=== PATIENT | male | born 1995 | race Caucasian/White ===

== ENCOUNTER 2017-10-12 02:00 | Emergency (ER) | payer OTHER ==
[~2017-10-12] VITALS: Ht 172.7 cm; Wt 105.0 kg
[2017-10-12 02:00] VITALS: BP 136/79; PULSE 78; RESP 16; TEMP 98; O2SAT 98
[~2017-10-12 02:00] MED LIST: BACT800T5 PO; CEPH500C3 PO; IBUP800T23 PO; SERO200T PO
[2017-10-12] MEDS ORDERED: SERO200T PO (02:39)
[2017-10-12 03:20] LABS: AUTOMATED NEUTROPHIL # 7.9 TH/MM3 (1.8-7.7); BASOPHIL % 0.1 % (0.0-2.0); EOSINOPHIL # 0.2 TH/MM3 (0-0.4); HEMOGLOBIN 12.9 GM/DL (13.0-17.0); LYMPH % 25.8 % (9.0-44.0); LYMPHOCYTE # 3.3 TH/MM3 (1.0-4.8); MEAN CELL VOLUME 64.3 FL (80.0-100.0); MEAN CORPUSCULAR HEMOGLOBIN 20.7 PG (27.0-34.0); MEAN CORPUSCULAR HGB CONC 32.2 % (32.0-36.0); MONO % 9.6 % (0.0-8.0); MONOCYTE # 1.2 TH/MM3 (0-0.9); NEUT % 62.5 % (16.0-70.0); PLATELET COUNT 267 TH/MM3 (150-450); RED BLOOD COUNT 6.22 MIL/MM3 (4.50-5.90); RED CELL DISTRIBUTION WIDTH 15.4 % (11.6-17.2); WHITE BLOOD COUNT 12.6 TH/MM3 (4.0-11.0)
[2017-10-12] MEDS ORDERED: LORazepam 2 MG/ML VIAL IV PUSH ONE (03:45)
--- NOTE | 2017-10-12 03:49 | PD ---
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 Patient here repetitively is cursing and abusive with language and behavior requiring vial restraints. Patient does not provide any useful information. According to law enforcement Neyda carlson family had apparently notified police due to their concerns and share patient does have history of schizophrenia bipolar disorder has been smoking cannabis has not been taking his medications and reportedly made several suicidal statements. Here the patient does not report any suicidal ideation but is aggressive and did require restraints PFSH Past Medical History Anemia: Yes Bipolar Disorder: Yes Anxiety: Yes Depression: Yes Cancer: No Cardiovascular Problems: No Diabetes: No Diminished Hearing: No Endocrine: No Gastrointestinal Disorders: Yes (HX OF GI BLEED 2013) Genitourinary: No Immune Disorder: No Implanted Vascular Access Dvce: No Musculoskeletal: No Neurologic: No Psychiatric: Yes Reproductive: No Respiratory: No Immunizations Current: Yes Schizophrenia: Yes Ulcer: Yes Past Surgical History Pacemaker: No Other Surgery: No Social History Alcohol Use: Yes (DRINKS ON OCCASION) Tobacco Use: Yes (1/2 -1 PPD) Substance Use: Yes Allergies-Medications (Allergen,Severity, Reaction): Coded Allergies: cat dander (Unverified Allergy, Severe, Sneezing, 10/12/17) Reported Meds & Prescriptions Reported Meds & Active Scripts Active Reported Seroquel (Quetiapine Fumarate) 200 Mg Tab 200 Mg PO BID Review of Systems ROS Limitations: Uncooperative, Refused, Poor Historian Except as stated in HPI: all other systems reviewed are Neg Physical Exam Narrative GENERAL: Well-developed well-nourished male in no acute distress no respiratory distress GCS 15 intermittently aggressive and using insulting and rude verbiage with medical staff SKIN: Warm and dry. HEAD: Normocephalic. EYES: No scleral icterus. No injection or drainage. NECK: Supple, trachea midline. No JVD or lymphadenopathy. CARDIOVASCULAR: Regular rate and rhythm without murmurs, gallops, or rubs. RESPIRATORY: Breath sounds equal bilaterally. No accessory muscle use. GASTROINTESTINAL: Abdomen soft, non-tender, nondistended. MUSCULOSKELETAL: No cyanosis, or edema. BACK: Nontender without obvious deformity. No CVA tenderness. Data Data Last Documented VS Vital Signs Date Time Temp Pulse Resp B/P (MAP) Pulse Ox O2 Delivery O2 Flow Rate FiO2 10/12/17 02:00 98.0 78 16 136/79 (98) 98 Orders Orders Complete Blood Count With Diff (10/12/17 02:41) Basic Metabolic Panel (Bmp) (10/12/17 02:41) Drug Screen, Random Urine (10/12/17 02:41) Alcohol (Ethanol) (10/12/17 02:41) Tylenol (Acetaminophen) (10/12/17 02:41) Salicylates (Aspirin) (10/12/17 02:41) Psych Screen (10/12/17 02:41) Cath For Specimen (10/12/17 02:41) Lorazepam Inj (Ativan Inj) (10/12/17 03:45) Restraints Violent (10/12/17 03:39) Labs Laboratory Tests Test 10/12/17 02:48 10/12/17 03:00 White Blood Count 12.6 TH/MM3 Red Blood Count 6.22 MIL/MM3 Hemoglobin 12.9 GM/DL Hematocrit 40.0 % Mean Corpuscular Volume 64.3 FL Mean Corpuscular Hemoglobin 20.7 PG Mean Corpuscular Hemoglobin Concent 32.2 % Red Cell Distribution Width 15.4 % Platelet Count 267 TH/MM3 Mean Platelet Volume 8.0 FL Neutrophils (%) (Auto) 62.5 % Lymphocytes (%) (Auto) 25.8 % Monocytes (%) (Auto) 9.6 % Eosinophils (%) (Auto) 2.0 % Basophils (%) (Auto) 0.1 % Neutrophils # (Auto) 7.9 TH/MM3 Lymphocytes # (Auto) 3.3 TH/MM3 Monocytes # (Auto) 1.2 TH/MM3 Eosinophils # (Auto) 0.2 TH/MM3 Basophils # (Auto) 0.0 TH/MM3 CBC Comment DIFF FINAL Differential Comment Blood Urea Nitrogen 8 MG/DL Creatinine 1.18 MG/DL Random Glucose 89 MG/DL Calcium Level 8.9 MG/DL Sodium Level 138 MEQ/L Potassium Level 3.4 MEQ/L Chloride Level 104 MEQ/L Carbon Dioxide Level 24.4 MEQ/L Anion Gap 10 MEQ/L Estimat Glomerular Filtration Rate 77 ML/MIN Salicylates Level 2.0 MG/DL Acetaminophen Level LESS THAN 2.0 MCG/ML Ethyl Alcohol Level LESS THAN 3 MG/DL Urine Opiates Screen NEG Urine Barbiturates Screen NEG Urine Amphetamines Screen NEG Urine Benzodiazepines Screen NEG Urine Cocaine Screen NEG Urine Cannabinoids Screen POS MDM Medical Decision Making Medical Screen Exam Complete: Yes Emergency Medical Condition: Yes Medical Record Reviewed: Yes Interpretation(s) CBC & BMP Diagram 10/12/17 02:48 Calcium Level 8.9 Vital Signs Date Time Temp Pulse Resp B/P (MAP) Pulse Ox O2 Delivery O2 Flow Rate FiO2 10/12/17 02:00 98.0 78 16 136/79 (98) 98 Differential Diagnosis Depression suicidal ideation medication noncompliance exacerbation schizoaffective disorder mood disorder substance ingestion Narrative Course 22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 recommendation of family identifying patient to be noncompliant with his medications for schizophrenia and bipolar disorder as well as substance use with marijuana and suicidal ideation; specimens collected and sent for resulting Patient becoming agitated and requiring chemical and physical while in restraints Lab values resulted and patient is medically cleared for psych screening and psych service admission Diagnosis Primary Impression: Mood disorder Additional Impressions: Bipolar disorder Suicidal ideation Noncompliance with medication regimen Marijuana use Myiram Watts MD Oct 12, 2017 03:49
[2017-10-12 03:56] LABS: BICARBONATE 24.4 MEQ/L (21.0-32.0); BLOOD UREA NITROGEN 8 MG/DL (7-18); CALCIUM 8.9 MG/DL (8.5-10.1); CHLORIDE 104 MEQ/L (98-107); CREATININE 1.18 MG/DL (0.60-1.30); GLOMERULAR FILTRATION RATE 77 ML/MIN (>89); GLUCOSE,RANDOM 89 MG/DL (74-106); SODIUM (NA) 138 MEQ/L (136-145)
[2017-10-12 03:57] LABS: ACETAMINOPHEN LESS THAN 2.0 MCG/ML (10.0-30.0)
[2017-10-12] MEDS ORDERED: FLUO-1 PO (04:40)
[2017-10-12] MEDS ORDERED: ONDANSETRON HCL 4 MG/2 ML VIAL IV PUSH ONE (06:45)
[2017-10-12 07:20] VITALS: BP 102/57; PULSE 84; RESP 16; O2SAT 98
[2017-10-12] MEDS ORDERED: ZIPRASIDONE MESYLATE 20 MG VIAL IM ONE (09:15)
[2017-10-12 13:04] VITALS: BP 129/89; PULSE 67; RESP 16; TEMP 97.6; O2SAT 98
[2017-10-12] MEDS ORDERED: HALOPERIDOL LACTATE 5 MG/ML AMP IM ONE (17:00)
[2017-10-12] MEDS ORDERED: diphenhydrAMINE HCL 50 MG/ML VIAL IM ONE (17:00)
[2017-10-12] MEDS ORDERED: LORazepam 2 MG/ML VIAL IM ONE (17:00)
--- NOTE | 2017-10-12 17:10 | PD ---
Data Data Last Documented VS Vital Signs Date Time Temp Pulse Resp B/P (MAP) Pulse Ox O2 Delivery O2 Flow Rate FiO2 10/12/17 13:04 97.6 67 16 129/89 (102) 98 Room Air Orders Orders Complete Blood Count With Diff (10/12/17 02:41) Basic Metabolic Panel (Bmp) (10/12/17 02:41) Drug Screen, Random Urine (10/12/17 02:41) Alcohol (Ethanol) (10/12/17 02:41) Tylenol (Acetaminophen) (10/12/17 02:41) Salicylates (Aspirin) (10/12/17 02:41) Psych Screen (10/12/17 02:41) Cath For Specimen (10/12/17 02:41) Lorazepam Inj (Ativan Inj) (10/12/17 03:45) Restraints Violent (10/12/17 03:39) Ondansetron Inj (Zofran Inj) (10/12/17 06:45) Ziprasidone Inj (Geodon Inj) (10/12/17 09:15) Diet Regular Basic (10/12/17 Dinner) ^ Other Nursing Orders (10/12/17 16:11) Haloperidol Inj (Haldol Inj) (10/12/17 17:00) Lorazepam Inj (Ativan Inj) (10/12/17 17:00) Restraints Violent (10/12/17 16:52) Diphenhydramine Inj (Benadryl Inj) (10/12/17 17:00) Labs Laboratory Tests Test 10/12/17 02:48 10/12/17 03:00 White Blood Count 12.6 TH/MM3 Red Blood Count 6.22 MIL/MM3 Hemoglobin 12.9 GM/DL Hematocrit 40.0 % Mean Corpuscular Volume 64.3 FL Mean Corpuscular Hemoglobin 20.7 PG Mean Corpuscular Hemoglobin Concent 32.2 % Red Cell Distribution Width 15.4 % Platelet Count 267 TH/MM3 Mean Platelet Volume 8.0 FL Neutrophils (%) (Auto) 62.5 % Lymphocytes (%) (Auto) 25.8 % Monocytes (%) (Auto) 9.6 % Eosinophils (%) (Auto) 2.0 % Basophils (%) (Auto) 0.1 % Neutrophils # (Auto) 7.9 TH/MM3 Lymphocytes # (Auto) 3.3 TH/MM3 Monocytes # (Auto) 1.2 TH/MM3 Eosinophils # (Auto) 0.2 TH/MM3 Basophils # (Auto) 0.0 TH/MM3 CBC Comment DIFF FINAL Differential Comment Blood Urea Nitrogen 8 MG/DL Creatinine 1.18 MG/DL Random Glucose 89 MG/DL Calcium Level 8.9 MG/DL Sodium Level 138 MEQ/L Potassium Level 3.4 MEQ/L Chloride Level 104 MEQ/L Carbon Dioxide Level 24.4 MEQ/L Anion Gap 10 MEQ/L Estimat Glomerular Filtration Rate 77 ML/MIN Salicylates Level 2.0 MG/DL Acetaminophen Level LESS THAN 2.0 MCG/ML Ethyl Alcohol Level LESS THAN 3 MG/DL Urine Opiates Screen NEG Urine Barbiturates Screen NEG Urine Amphetamines Screen NEG Urine Benzodiazepines Screen NEG Urine Cocaine Screen NEG Urine Cannabinoids Screen POS MDM Supervised Visit with CLEMENTINA: No Narrative Course Patient was a code [facility] from [facility]. Apparently he did not want to stay any longer and kicked the locked door of [facility] open and then proceeded to do to sliding glass doors that lead to the parking lot and kicked those 2 doors open. He was seen stripping from his paper scrubs in the parking lot and an security confronted him and he surrendered putting his hands on his head. He did not have to be forcibly taken down. He was brought back to the [facility] and placed in 4-point locking restraints under my order. When I asked the patient what happened he stated "look around G". He states "the government is allowing this to happen to him". The patient understands is under Faye act but cannot tell me any reason why he came to be under Faye act. He is incredibly tangential and avoids any subject of pertinence. The patient either has very poor insight into his situation or is unwilling to discuss it with me. Either way he is not in capacity to make his own decisions. He will be sedated. Will be continued to be monitored on her nursing care. He's been previously medically cleared for psychiatric evaluation and disposition. On my examination the patient has no bumps bruises contusions on his person. He is moving all 4 extremities. He ambulated back into the emergency department under his own power. No indication for any further medical workup at this time. Diagnosis Primary Impression: Mood disorder Additional Impressions: Suicidal ideation Bipolar disorder Marijuana use Noncompliance with medication regimen Levi Preciado MD Oct 12, 2017 17:10
[2017-10-12 17:52] VITALS: BP 139/73; PULSE 83; RESP 20; TEMP 99.3; O2SAT 96
[2017-10-12 22:28] VITALS: BP 121/70; PULSE 73; RESP 19; TEMP 97.6; O2SAT 99
[2017-10-13 02:38] VITALS: BP 135/78; PULSE 69; RESP 18; TEMP 98.2; O2SAT 98
[2017-10-13] MEDS ORDERED: HALOPERIDOL LACTATE 5 MG/ML AMP IM ONE ×2 (04:30→09:15)
[2017-10-13] MEDS ORDERED: LORazepam 2 MG/ML VIAL IM ONE ×2 (04:30→09:15)
[2017-10-13 07:13] VITALS: BP 150/94; PULSE 94; RESP 18; TEMP 97.8; O2SAT 96
--- NOTE | 2017-10-13 08:55 | PD ---
Physical Exam Time Seen by Provider: 08:40 Data Data Last Documented VS Vital Signs Date Time Temp Pulse Resp B/P (MAP) Pulse Ox O2 Delivery O2 Flow Rate FiO2 10/13/17 07:13 97.8 94 18 150/94 (112) 96 Room Air Orders Orders Complete Blood Count With Diff (10/12/17 02:41) Basic Metabolic Panel (Bmp) (10/12/17 02:41) Drug Screen, Random Urine (10/12/17 02:41) Alcohol (Ethanol) (10/12/17 02:41) Tylenol (Acetaminophen) (10/12/17 02:41) Salicylates (Aspirin) (10/12/17 02:41) Psych Screen (10/12/17 02:41) Cath For Specimen (10/12/17 02:41) Lorazepam Inj (Ativan Inj) (10/12/17 03:45) Restraints Violent (10/12/17 03:39) Ondansetron Inj (Zofran Inj) (10/12/17 06:45) Ziprasidone Inj (Geodon Inj) (10/12/17 09:15) Diet Regular Basic (10/12/17 Dinner) ^ Other Nursing Orders (10/12/17 16:11) Haloperidol Inj (Haldol Inj) (10/12/17 17:00) Lorazepam Inj (Ativan Inj) (10/12/17 17:00) Restraints Violent (10/12/17 16:52) Diphenhydramine Inj (Benadryl Inj) (10/12/17 17:00) Haloperidol Inj (Haldol Inj) (10/13/17 04:30) Lorazepam Inj (Ativan Inj) (10/13/17 04:30) Diet Regular Basic (10/13/17 Breakfast) Foot, Complete ([id number]) (10/13/17 ) Lorazepam Inj (Ativan Inj) (10/13/17 09:15) Haloperidol Inj (Haldol Inj) (10/13/17 09:15) Nicotine 14 Mg Patch.24 Hr (Habitrol 14 (10/13/17 09:15) Labs Laboratory Tests Test 10/12/17 02:48 10/12/17 03:00 White Blood Count 12.6 TH/MM3 Red Blood Count 6.22 MIL/MM3 Hemoglobin 12.9 GM/DL Hematocrit 40.0 % Mean Corpuscular Volume 64.3 FL Mean Corpuscular Hemoglobin 20.7 PG Mean Corpuscular Hemoglobin Concent 32.2 % Red Cell Distribution Width 15.4 % Platelet Count 267 TH/MM3 Mean Platelet Volume 8.0 FL Neutrophils (%) (Auto) 62.5 % Lymphocytes (%) (Auto) 25.8 % Monocytes (%) (Auto) 9.6 % Eosinophils (%) (Auto) 2.0 % Basophils (%) (Auto) 0.1 % Neutrophils # (Auto) 7.9 TH/MM3 Lymphocytes # (Auto) 3.3 TH/MM3 Monocytes # (Auto) 1.2 TH/MM3 Eosinophils # (Auto) 0.2 TH/MM3 Basophils # (Auto) 0.0 TH/MM3 CBC Comment DIFF FINAL Differential Comment Blood Urea Nitrogen 8 MG/DL Creatinine 1.18 MG/DL Random Glucose 89 MG/DL Calcium Level 8.9 MG/DL Sodium Level 138 MEQ/L Potassium Level 3.4 MEQ/L Chloride Level 104 MEQ/L Carbon Dioxide Level 24.4 MEQ/L Anion Gap 10 MEQ/L Estimat Glomerular Filtration Rate 77 ML/MIN Salicylates Level 2.0 MG/DL Acetaminophen Level LESS THAN 2.0 MCG/ML Ethyl Alcohol Level LESS THAN 3 MG/DL Urine Opiates Screen NEG Urine Barbiturates Screen NEG Urine Amphetamines Screen NEG Urine Benzodiazepines Screen NEG Urine Cocaine Screen NEG Urine Cannabinoids Screen POS MDM Medical Record Reviewed: Yes Supervised Visit with CLEMENTINA: No Narrative Course Please see previous provider's notes. This patient was previously medically cleared. I was asked to examine this patient's right foot. According to staff yesterday he kicked a door open with his right foot. He is now complaining of right foot pain, primarily overlying the proximal third and fourth metatarsals. The pain is an aching pain which is reproduced when walking and alleviated when resting. On examination there is no obvious deformity, no bruising or soft tissue swelling. He has point tenderness to palpation to the dorsal surface of the right foot overlying the proximal third and fourth metatarsals. X-ray imaging will be obtained. X-ray imaging is normal. The patient appears to have a contusion to his right foot. Diagnosis Primary Impression: Mood disorder Additional Impressions: Suicidal ideation Bipolar disorder Marijuana use Noncompliance with medication regimen Contusion of right foot Alfredo Crawford Oct 13, 2017 08:55
[2017-10-13] MEDS ORDERED: NICOTINE 14 MG/24 HR PATCH T-DERMAL ONE (09:15)
--- NOTE | 2017-10-13 09:24 | RADRPT ---
EXAM DATE/TIME: 10/13/2017 09:10 [facility] COMPARISON: No previous studies available for comparison. INDICATIONS : Patient states right foot pain. MEDICAL HISTORY : None. SURGICAL HISTORY : None. ENCOUNTER: Initial ACUITY: 1 day PAIN SCORE: 5/10 LOCATION: Right Foot FINDINGS: Three view examination of the right foot demonstrates no soft tissue swelling, dislocation, or fractu re. The tarsal bones appear intact. The interphalangeal and metatarsophalangeal joints are intact. The calcaneus is intact. Bony mineralization is normal. CONCLUSION: Unremarkable examination of the right foot. Timi Armas MD on October 13, 2017 at 9:20 Board Certified Radiologist. This report was verified electronically.
== END 2017-10-13 10:08 ==
LOC: NEPC 02:00 → NEPJ 10-13 10:08
DX: F39 Unspecified mood [affective] disorder (principal); R45.851 Suicidal ideations; F31.9 Bipolar disorder, unspecified; F12.10 Cannabis abuse, uncomplicated; S90.31XA Contusion of right foot, initial encounter; Z91.14 Patient's other noncompliance with medication regimen; F20.9 Schizophrenia, unspecified; F17.210 Nicotine dependence, cigarettes, uncomplicated; X58.XXXA Exposure to other specified factors, initial encounter
CPT/HCPCS: 73630; 80048; 80307; 85025; 96372; 96374; 96375; 99285; J1200; J1630; J2060; J2405; J3486

== ENCOUNTER 2017-10-16 13:09 | Emergency (ER) | payer OTHER ==
[~2017-10-16] VITALS: Ht 177.8 cm; Wt 80.0 kg
[~2017-10-16 13:09] MED LIST changes: -BACT800T5 PO; -CEPH500C3 PO; +FLUO-1 PO; -IBUP800T23 PO
[2017-10-16 13:24] VITALS: BP 167/91; PULSE 107; RESP 18; TEMP 98; O2SAT 98
--- NOTE | 2017-10-16 14:24 | PD ---
HPI Chief Complaint: Psychiatric Symptoms Time Seen by Provider: 14:07 Travel History International Travel<30 days: No Contact w/Intl Traveler<30days: No Traveled to known affect area: No History of Present Illness HPI 22-year-old male brought in under the Faye act for threatening behavior to his family. Patient admits he has not been taking his medications appropriately. Patient appears uncooperative. He denies medical issues at this time. He is allergic to cat dander. PFSH Past Medical History Anemia: Yes Bipolar Disorder: Yes Anxiety: Yes Depression: Yes Cancer: No Cardiovascular Problems: No Diabetes: No Diminished Hearing: No Endocrine: No Gastrointestinal Disorders: Yes (HX OF GI BLEED 2013) Genitourinary: No Immune Disorder: No Implanted Vascular Access Dvce: No Musculoskeletal: No Neurologic: No Psychiatric: Yes Reproductive: No Respiratory: No Immunizations Current: Yes Schizophrenia: Yes Ulcer: Yes Past Surgical History Pacemaker: No Other Surgery: No Social History Alcohol Use: Yes (DRINKS ON OCCASION) Tobacco Use: Yes (2 -1 PPD) Substance Use: Yes Allergies-Medications (Allergen,Severity, Reaction): Coded Allergies: cat dander (Unverified Allergy, Severe, Sneezing, 10/12/17) Reported Meds & Prescriptions Reported Meds & Active Scripts Active Reported Prozac (Fluoxetine HCl) 10 Mg Cap 10 Mg PO DAILY Seroquel (Quetiapine Fumarate) 200 Mg Tab 200 Mg PO BID Review of Systems ROS Limitations: Uncooperative, Combative Except as stated in HPI: all other systems reviewed are Neg General / Constitutional: No: Fever Eyes: No: Visual changes HENT: No: Headaches Cardiovascular: No: Chest Pain or Discomfort Respiratory: No: Shortness of Breath Gastrointestinal: No: Abdominal Pain Genitourinary: No: Dysuria Musculoskeletal: No: Pain Skin: No Rash Neurologic: No: Weakness Psychiatric: No: Depression Endocrine: No: Polydipsia Hematologic/Lymphatic: No: Easy Bruising Physical Exam Exam Limitations: Uncooperative, Combative Narrative GENERAL: Patient appears in no obvious distress. SKIN: Warm and dry. Normal color. Normal turgor. No signs of trauma. HEAD: Atraumatic. Normocephalic. EYES: Pupils equal and round. No scleral icterus. No injection or drainage. ENT: No nasal bleeding or discharge. Mucous membranes pink and moist. NECK: Trachea midline. Supple and nontender. CARDIOVASCULAR: Regular rate and rhythm. RESPIRATORY: No accessory muscle use. Clear to auscultation. Breath sounds equal bilaterally. MUSCULOSKELETAL: Extremities without clubbing, cyanosis, or edema. No obvious deformities. NEUROLOGICAL: Awake and alert. No obvious cranial nerve deficits. Motor grossly within normal limits. Five out of 5 muscle strength in the arms and legs. Normal speech. PSYCHIATRIC: Appropriate mood and affect; insight and judgment normal. Data Data Last Documented VS Vital Signs Date Time Temp Pulse Resp B/P (MAP) Pulse Ox O2 Delivery O2 Flow Rate FiO2 10/16/17 13:24 98.0 107 18 167/91 (116) 98 Orders Orders Psych Screen (10/16/17 13:52) Complete Blood Count With Diff (10/16/17 14:08) Comprehensive Metabolic Panel (10/16/17 14:08) Drug Screen, Random Urine (10/16/17 14:08) MDM Medical Decision Making Medical Screen Exam Complete: Yes Emergency Medical Condition: Yes Medical Record Reviewed: Yes Differential Diagnosis Mood disorder. Aggressive behavior. Faye act. Psychiatric disorder. Narrative Course Patient appears medically stable at time of exam. Psychiatric labs ordered per protocol. Patient is medically clear for psychiatric evaluation. Condition: Stable Jorge Antonio Oct 16, 2017 14:23
[2017-10-16] MEDS ORDERED: LORazepam 2 MG/ML VIAL ONE (14:30)
[2017-10-16] MEDS ORDERED: ZIPRASIDONE MESYLATE 20 MG VIAL IM ONE ×2 (14:32→14:45)
[2017-10-16] MEDS ORDERED: diphenhydrAMINE HCL 50 MG/ML VIAL IM ONE (14:45)
[2017-10-16 15:05] LABS: AUTOMATED NEUTROPHIL # 7.9 TH/MM3 (1.8-7.7); BASOPHIL % 0.2 % (0.0-2.0); EOSINOPHIL # 0.2 TH/MM3 (0-0.4); EOSINOPHIL % 1.7 % (0.0-4.0); HEMATOCRIT 39.2 % (39.0-51.0); HEMOGLOBIN 12.6 GM/DL (13.0-17.0); LYMPHOCYTE # 2.3 TH/MM3 (1.0-4.8); MEAN CELL VOLUME 64.3 FL (80.0-100.0); MEAN CORPUSCULAR HEMOGLOBIN 20.6 PG (27.0-34.0); MEAN CORPUSCULAR HGB CONC 32.1 % (32.0-36.0); MONO % 9.3 % (0.0-8.0); MONOCYTE # 1.1 TH/MM3 (0-0.9); NEUT % 68.8 % (16.0-70.0); PLATELET COUNT 267 TH/MM3 (150-450); RED CELL DISTRIBUTION WIDTH 15.3 % (11.6-17.2); WHITE BLOOD COUNT 11.5 TH/MM3 (4.0-11.0)
[2017-10-16] MEDS ORDERED: LORazepam 2 MG/ML VIAL IM ONE ×2 (15:15→19:00)
[2017-10-16 15:22] LABS: ALBUMIN 4.9 GM/DL (3.4-5.0); ALT (GPT) 45 U/L (12-78); AST (GOT) 61 U/L (15-37); BICARBONATE 25.8 MEQ/L (21.0-32.0); BLOOD UREA NITROGEN 10 MG/DL (7-18); CALCIUM 9.1 MG/DL (8.5-10.1); CHLORIDE 104 MEQ/L (98-107); CREATININE 1.19 MG/DL (0.60-1.30); GLOMERULAR FILTRATION RATE 76 ML/MIN (>89); GLUCOSE,RANDOM 92 MG/DL (74-106); SODIUM (NA) 138 MEQ/L (136-145)
[2017-10-16 15:24] LABS: ALKALINE PHOSPHATASE 75 U/L (45-117); TOTAL PROTEIN 8.2 GM/DL (6.4-8.2)
[2017-10-16 18:53] VITALS: BP 150/92; PULSE 120; RESP 22; O2SAT 93
== END 2017-10-16 22:11 ==
LOC: NEPJ 13:09
DX: Z04.6 Encounter for general psychiatric examination, requested by authority (principal); D64.9 Anemia, unspecified; F31.9 Bipolar disorder, unspecified; F41.8 Other specified anxiety disorders; F20.9 Schizophrenia, unspecified; F17.210 Nicotine dependence, cigarettes, uncomplicated
CPT/HCPCS: 80053; 80307; 85025; 96372; 96374; 99285; J2060; J3486

== ENCOUNTER 2017-10-24 00:03 | Emergency (ER) | payer MEDICAID, OTHER ==
[2017-10-24 00:57] VITALS: BP 134/76; PULSE 85; RESP 17; TEMP 97.9; O2SAT 100
[2017-10-24 01:29] LABS: BILIRUBIN, URINE NEG (NEG); BLOOD, URINE NEG (NEG); GLUCOSE,URINE NEG (NEG); KETONE, URINE NEG (NEG); NITRITE,URINE NEG (NEG); URINE COLOR YELLOW (YELLW/STRAW); URINE LEUKOCYTE ESTERASE NEG (NEG)
--- NOTE | 2017-10-24 01:50 | PD ---
HPI Chief Complaint: Psychiatric Symptoms Time Seen by Provider: 01:24 Travel History International Travel<30 days: No Contact w/Intl Traveler<30days: No Traveled to known affect area: No History of Present Illness HPI 22-year-old white male presents to emergency department under Faye act by PD. According to the Faye act the patient had become violent and threatening at the home. The patient states that this is a big mistake. He had accidentally moved his furniture bench at home and it made a thumb alerted his grandmother to check on him. She blew this out of proportion. He denies making any threatening statements or actions. He states that he's been compliant with his medications. He thinks he is taking Depakote. States that he had a good workout at the gym earlier today and had a good evening and dinner. Patient denies any toxic ingestions. No medical complaints. Patient denies drugs and alcohol. PFSH Past Medical History Anemia: Yes Bipolar Disorder: Yes Anxiety: Yes Depression: Yes Cancer: No Cardiovascular Problems: No Diabetes: No Diminished Hearing: No Endocrine: No Gastrointestinal Disorders: Yes (HX OF GI BLEED 2013) Genitourinary: No Immune Disorder: No Implanted Vascular Access Dvce: No Musculoskeletal: No Neurologic: No Psychiatric: Yes Reproductive: No Respiratory: No Immunizations Current: Yes Schizophrenia: Yes Ulcer: Yes Past Surgical History Surgical History: No Previous Surgery Pacemaker: No Other Surgery: No Social History Alcohol Use: Yes (DRINKS ON OCCASION) Tobacco Use: Yes (09/30 - PPD) Allergies-Medications (Allergen,Severity, Reaction): Coded Allergies: cat dander (Unverified Allergy, Severe, Sneezing, 10/12/17) Reported Meds & Prescriptions Reported Meds & Active Scripts Active Reported Prozac (Fluoxetine HCl) 10 Mg Cap 10 Mg PO DAILY Seroquel (Quetiapine Fumarate) 200 Mg Tab 200 Mg PO BID Review of Systems General / Constitutional: No: Fever Eyes: No: Visual changes HENT: No: Headaches Cardiovascular: No: Chest Pain or Discomfort Respiratory: No: Shortness of Breath Gastrointestinal: No: Abdominal Pain Genitourinary: No: Dysuria Musculoskeletal: No: Pain Skin: No Rash Neurologic: No: Weakness Psychiatric: No: Anxiety, Depression, Suicidal Ideations, Disorder of Thought, Mood Disorder, Substance Abuse, Homicidal Ideation Endocrine: No: Polydipsia Hematologic/Lymphatic: No: Easy Bruising Physical Exam Narrative GENERAL: Well-nourished, well-developed patient. SKIN: Warm and dry. HEAD: Normocephalic and atraumatic. EYES: No scleral icterus. No injection or drainage. ENT: No nasal drainage noted. Mucous membranes pink. Airway patent. NECK: Supple, trachea midline. Moves head freely without obvious discomfort. CARDIOVASCULAR: Regular rate and rhythm without murmurs, gallops, or rubs. RESPIRATORY: Breath sounds equal bilaterally. No accessory muscle use. GASTROINTESTINAL: Abdomen soft, non-tender, nondistended. EXTREMITIES: No cyanosis or edema. BACK: Nontender without obvious deformity. No CVA tenderness. NEURO: Patient is alert and oriented. no sensorimotor deficits. Nonfocal. Normal speech. PSYCH: No delusions. No auditory or visual hallucinations. Data Data Last Documented VS Vital Signs Date Time Temp Pulse Resp B/P (MAP) Pulse Ox O2 Delivery O2 Flow Rate FiO2 10/24/17 00:57 97.9 85 17 134/76 (95) 100 Orders Orders Urinalysis - C+S If Indicated (10/24/17 00:52) Psych Screen (10/24/17 00:52) Drug Screen, Random Urine (10/24/17 00:52) Valproic Acid (Depakene) (10/24/17 01:43) Lorazepam (Ativan) (10/24/17 02:30) Labs Laboratory Tests Test 10/24/17 01:10 10/24/17 01:55 Urine Color YELLOW Urine Turbidity CLEAR Urine pH 7.0 Urine Specific [place] 1.007 Urine Protein NEG mg/dL Urine Glucose (UA) NEG mg/dL Urine Ketones NEG mg/dL Urine Occult Blood NEG Urine Nitrite NEG Urine Bilirubin NEG Urine Urobilinogen LESS THAN 2.0 MG/DL Urine Leukocyte Esterase NEG Urine RBC LESS THAN 1 /hpf Urine WBC LESS THAN 1 /hpf Microscopic Urinalysis Comment CULT NOT INDICATED Urine Opiates Screen NEG Urine Barbiturates Screen NEG Urine Amphetamines Screen NEG Urine Benzodiazepines Screen NEG Urine Cocaine Screen NEG Urine Cannabinoids Screen POS MDM Medical Decision Making Medical Screen Exam Complete: Yes Emergency Medical Condition: Yes Medical Record Reviewed: Yes Interpretation(s) Laboratory Tests Test 10/24/17 01:10 10/24/17 01:55 Urine Color YELLOW Urine Turbidity CLEAR Urine pH 7.0 Urine Specific [place] 1.007 Urine Protein NEG mg/dL Urine Glucose (UA) NEG mg/dL Urine Ketones NEG mg/dL Urine Occult Blood NEG Urine Nitrite NEG Urine Bilirubin NEG Urine Urobilinogen LESS THAN 2.0 MG/DL Urine Leukocyte Esterase NEG Urine RBC LESS THAN 1 /hpf Urine WBC LESS THAN 1 /hpf Microscopic Urinalysis Comment CULT NOT INDICATED Urine Opiates Screen NEG Urine Barbiturates Screen NEG Urine Amphetamines Screen NEG Urine Benzodiazepines Screen NEG Urine Cocaine Screen NEG Urine Cannabinoids Screen POS Differential Diagnosis MDM: High Differential diagnoses: Schizophrenia, schizoaffective disorder, bipolar, anxiety, depression, adjustment reaction, mood disorder NOS, ODD, depressive disorder NOS, dementia, dementia with agitation, psychosis NOS, substance induced mood disorder, DMDD, Asperger syndrome, infection,electrolyte abnormality, malingering. Narrative Course Mental health screening discussed with the patient. Psychiatric screen ordered. The patient has been medically clear. This is medical clearance for psychiatric admission Diagnosis Primary Impression: Medical clearance for psychiatric admission Condition: Stable Sarath Lagunas Oct 24, 2017 01:50
[2017-10-24] MEDS ORDERED: LORazepam 1 MG TAB PO ONE (02:30)
[2017-10-24 06:09] VITALS: BP 136/73; PULSE 78; RESP 18; O2SAT 99
[2017-10-24] MEDS ORDERED: IBUPROFEN 800 MG TAB PO ONE (09:45)
[2017-10-24] MEDS ORDERED: ARIP1064 IM (12:40)
[2017-10-24] MEDS ORDERED: ABIL15TA3 PO (12:40)
[2017-10-24] MEDS ORDERED: VALP250C PO (12:41)
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
[2017-10-24] MEDS ORDERED: diphenhydrAMINE HCL 50 MG/ML VIAL IM ONE (14:00)
[2017-10-24] MEDS ORDERED: LORazepam 2 MG/ML VIAL IM ONE (14:00)
[2017-10-24] MEDS ORDERED: ZIPRASIDONE MESYLATE 20 MG VIAL IM ONE (14:00)
== END 2017-10-24 15:50 | disposition home or self-care (01) ==
LOC: NEDAMB 00:03 → NEPJ 15:50
DX: F31.63 Bipolar disorder, current episode mixed, severe, without psychotic features (principal); F20.9 Schizophrenia, unspecified; D64.9 Anemia, unspecified; F41.9 Anxiety disorder, unspecified; F17.200 Nicotine dependence, unspecified, uncomplicated; Z79.899 Other long term (current) drug therapy
CPT/HCPCS: 80164; 80307; 81001; 96372; 99285; J1200; J2060; J3486

== ENCOUNTER 2017-10-26 01:20 | Emergency (ER) | payer SELFPAY ==
[~2017-10-26] VITALS: Ht 172.7 cm; Wt 105.0 kg
[~2017-10-26 01:20] MED LIST changes: +ABIL15TA3 PO; +ARIP1064 IM; -FLUO-1 PO; -SERO200T PO; +VALP250C PO
[2017-10-26 01:37] VITALS: BP 125/72; PULSE 85; RESP 18; TEMP 98.4; O2SAT 96
[2017-10-26] MEDS ORDERED: DEPA500T3 PO (01:41)
[2017-10-26] MEDS ORDERED: VIST50CA PO (01:41)
[2017-10-26] MEDS ORDERED: DICL75TA PO (01:45)
--- NOTE | 2017-10-26 01:45 | PD ---
HPI Chief Complaint: Pain: Acute or Chronic Time Seen by Provider: 01:40 Travel History International Travel<30 days: No Contact w/Intl Traveler<30days: No Traveled to known affect area: No History of Present Illness HPI 22-year-old white male known to myself from prior admissions presents to the ER from [facility] for evaluation of right hand pain after punching a door. Patient complains of pain in the right hand. No other injury. Pain is moderate. Worse with palpation. Some relief with elevation. PFSH Past Medical History Anemia: Yes Bipolar Disorder: Yes Anxiety: Yes Depression: Yes Cancer: No Cardiovascular Problems: No Diabetes: No Diminished Hearing: No Endocrine: No Gastrointestinal Disorders: Yes (HX OF GI BLEED 2013) Genitourinary: No Immune Disorder: No Implanted Vascular Access Dvce: No Musculoskeletal: No Neurologic: No Psychiatric: Yes Reproductive: No Respiratory: No Immunizations Current: Yes Schizophrenia: Yes Ulcer: Yes Past Surgical History Pacemaker: No Other Surgery: No Social History Alcohol Use: Yes (DRINKS ON OCCASION) Tobacco Use: Yes (2 - PPD) Allergies-Medications (Allergen,Severity, Reaction): Coded Allergies: cat dander (Unverified Allergy, Severe, Sneezing, 10/12/17) Reported Meds & Prescriptions Reported Meds & Active Scripts Active Diclofenac Sodium DR (Diclofenac Sodium) 75 Mg Tabdr 75 Mg PO BID Reported Vistaril (Hydroxyzine Pamoate) 50 Mg Cap 50 Mg PO BID Depakote ER (Divalproex Sodium) 500 Mg Omar 500 Mg PO HS Abilify (Aripiprazole) 15 Mg Tab 15 Mg PO HS Review of Systems General / Constitutional: No: Fever Eyes: No: Visual changes HENT: No: Headaches Cardiovascular: No: Chest Pain or Discomfort Respiratory: No: Shortness of Breath Gastrointestinal: No: Abdominal Pain Genitourinary: No: Dysuria Musculoskeletal: Positive: Arthralgias, Limited ROM, Edema, Pain, No: Myalgias , Weakness, Cramping Skin: No Rash Neurologic: No: Weakness Psychiatric: No: Depression Endocrine: No: Polydipsia Hematologic/Lymphatic: No: Easy Bruising Physical Exam Narrative GENERAL: This is a well-nourished, well-developed patient, in no apparent distress. SKIN: No rashes, ecchymoses or lesions. Warm and dry. HEAD: Atraumatic. Normocephalic. EYES: PERRL, EOMI, no discharge or injection. No scleral icterus. EARS: Clear NOSE: Nasal turbinates appear normal. THROAT: Mucosa pink and moist. Airway patent. NECK: Trachea midline. supple, moves head freely. LUNGS: Clear to auscultation. CV: Regular in rhythm. ABDOMEN: Soft nontender. EXT: No clubbing cyanosis. Examination the right hand reveals the skin to be intact. He has intact median/ulnar/radial nerves. Patient has tenderness and deformity over the fifth metacarpal. Data Data Last Documented VS Vital Signs Date Time Temp Pulse Resp B/P (MAP) Pulse Ox O2 Delivery O2 Flow Rate FiO2 10/26/17 01:37 98.4 85 18 125/72 (89) 96 Orders Orders Hand, Complete ([id number]) (10/26/17 01:41) Naproxen (Naprosyn) (10/26/17 02:00) Acetamin-Hydrocod 325-5 Mg ([place] 5-325 (10/26/17 02:00) Ice/Cold Pack (10/26/17 01:46) Splint Or Brace Apply/Monitor (10/26/17 01:46) Ed Discharge Order (10/26/17 02:17) MDM Medical Decision Making Medical Screen Exam Complete: Yes Emergency Medical Condition: Yes Medical Record Reviewed: Yes Interpretation(s) Right hand: Positive fifth metacarpal fracture Differential Diagnosis MDM: High Differential diagnoses: Fracture, sprain, strain, dislocation, contusion, neurovascular injury Narrative Course Patient has a fractured fifth metacarpal. He is placed in an ulnar gutter splint. He is given 1 hydrocodone 5 mg by mouth and Naprosyn 500 mg by mouth. Ice pack applied. This is right hand fracture fifth metacarpal Diagnosis Primary Impression: right fifth metacarpal fracture Patient Instructions: General Instructions Med/Other Pt SpecificInfo: Prescription(s) given Scripts Diclofenac Sodium DR (Diclofenac Sodium DR) 75 Mg Tabdr 75 MG PO BID, #30 TAB 0 Refills Prov: José Mccracken MD 10/26/17 Disposition: 65 DISC TO [facility] Condition: Stable Sarath Lagunas Oct 26, 2017 01:45
[2017-10-26] MEDS ORDERED: NAPROXEN 500 MG TAB PO ONE (02:00)
[2017-10-26] MEDS ORDERED: ACETAMINOPHEN/HYDROcodone 325 MG/5 MG TAB PO ONE (02:00)
--- NOTE | 2017-10-26 02:38 | RADRPT ---
EXAM DATE/TIME: 10/26/2017 02:03 [place] COMPARISON: No previous studies available for comparison. INDICATIONS : Pain and swelling to Right hand- No known injury MEDICAL HISTORY : None. SURGICAL HISTORY : None. ENCOUNTER: Initial ACUITY: 1 day PAIN SCORE: 7/10 LOCATION: Right Hand FINDINGS: There is fracture of the distal aspect of the fifth metacarpal with some volar angulation of the dist al fragment. CONCLUSION: Boxer fracture. Srinath Kaur MD on October 26, 2017 at 2:35 Board Certified Radiologist. This report was verified electronically.
== END 2017-10-26 02:51 ==
LOC: NEPD 01:20
DX: S62.396A Other fracture of fifth metacarpal bone, right hand, initial encounter for closed fracture (principal); W22.8XXA Striking against or struck by other objects, initial encounter
CPT/HCPCS: 29125; 73130

== ENCOUNTER 2017-10-28 23:48 | Inpatient (IN) | payer OTHER ==
[~2017-10-28] VITALS: Ht 167.6 cm; Wt 102.8 kg
[~2017-10-28 23:48] MED LIST changes: -ARIP1064 IM; +DEPA500T3 PO; +DICL75TA PO; -VALP250C PO; +VIST50CA PO
[2017-10-28 23:56] VITALS: BP 127/79; PULSE 83; RESP 16; TEMP 98.2; O2SAT 99
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
[2017-10-29 00:32] LABS: AUTOMATED NEUTROPHIL # 7.1 TH/MM3 (1.8-7.7); BASOPHIL # 0.2 TH/MM3 (0-0.2); BASOPHIL % 1.6 % (0.0-2.0); EOSINOPHIL # 0.2 TH/MM3 (0-0.4); EOSINOPHIL % 2.2 % (0.0-4.0); HEMATOCRIT 36.1 % (39.0-51.0); HEMOGLOBIN 11.9 GM/DL (13.0-17.0); LYMPH % 25.9 % (9.0-44.0); LYMPHOCYTE # 2.9 TH/MM3 (1.0-4.8); MEAN CELL VOLUME 64.1 FL (80.0-100.0); MEAN CORPUSCULAR HEMOGLOBIN 21.2 PG (27.0-34.0); MEAN PLATELET VOLUME 7.6 FL (7.0-11.0); MONO % 7.2 % (0.0-8.0); MONOCYTE # 0.8 TH/MM3 (0-0.9); NEUT % 63.1 % (16.0-70.0); PLATELET COUNT 336 TH/MM3 (150-450); RED BLOOD COUNT 5.63 MIL/MM3 (4.50-5.90); RED CELL DISTRIBUTION WIDTH 15.7 % (11.6-17.2); WHITE BLOOD COUNT 11.2 TH/MM3 (4.0-11.0)
[2017-10-29 00:33] LABS: BILIRUBIN, URINE NEG (NEG); BLOOD, URINE NEG (NEG); GLUCOSE,URINE NEG (NEG); KETONE, URINE NEG (NEG); MUCUS URINE FEW /lpf (OCC); NITRITE,URINE NEG (NEG); SQUAMOUS EPITHELIAL CELL URINE <1 /hpf (0-5); URINE COLOR YELLOW (YELLW/STRAW); URINE LEUKOCYTE ESTERASE NEG (NEG)
[2017-10-29 00:44] LABS: BICARBONATE 29.1 MEQ/L (21.0-32.0); BLOOD UREA NITROGEN 4 MG/DL (7-18); CALCIUM 8.8 MG/DL (8.5-10.1); CHLORIDE 104 MEQ/L (98-107); GLOMERULAR FILTRATION RATE 93 ML/MIN (>89); GLUCOSE,RANDOM 92 MG/DL (74-106); SODIUM (NA) 142 MEQ/L (136-145)
[2017-10-29] MEDS ORDERED: HALOPERIDOL LACTATE 5 MG/ML AMP IM PRN (00:45)
[2017-10-29] MEDS: LORazepam 2 MG/ML VIAL IM PRN (01:24)
[2017-10-29] MEDS: diphenhydrAMINE HCL 50 MG/ML VIAL IM PRN (01:25)
[2017-10-29] MEDS ORDERED: ALUMINUM/MAGNESIUM/SIMETH 30 ML CUP PO PRN (06:00)
[2017-10-29] MEDS ORDERED: BENZTROPINE MESYLATE 2 MG/2 ML VIAL IM PRN (06:00)
[2017-10-29] MEDS ORDERED: BENZTROPINE MESYLATE 1 MG TAB PO PRN (06:00)
[2017-10-29 06:22] VITALS: BP 139/73; PULSE 75; RESP 16; TEMP 98.2; O2SAT 99
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
[2017-10-29] MEDS ORDERED: LORazepam 2 MG/ML VIAL IM PRN (11:45)
[2017-10-29] MEDS ORDERED: ZIPRASIDONE MESYLATE 20 MG VIAL IM PRN (11:45)
[2017-10-29] MEDS: IBUPROFEN 600 MG TAB PO PRN (12:45)
--- NOTE | 2017-10-29 13:18 | PD.PSY.CON ---
Provisional Diagnosis Admission Date Oct 29, 2017 at 05:47 [place] I. 1. Bipolar disorder, presently mixed, severe with psychotic features Rule out component of drug induced mood/psychotic disorder 2. Cannabis abuse [place] II. 1. Some cluster B personality traits History of Present Illness Service Psychiatry Consult Requested By Psychiatry Reason for Consult Dr. Jacobs Primary Care Physician No Primary Care Physician HPI Mr. Velasco is a 22-year-old male with a reported history of bipolar disorder versus schizoaffective disorder who presents under a [place] act by law enforcement alleging that the patient has been threatening family. Reviewing the electronic medical record, I note that the patient was admitted here most [place] [address] Dalal.Patient seen and examined with nurse. Chart reviewed. Case discussed with nursing staff. On my examination today, the patient presents as extremely tense and irritable. He appears internally stimulated although he denies audiovisual hallucinations. He denies the allegations in the [place] act and says "I was chilling at my house and [place] He is paranoid, particularly regarding his family. He tends to minimize his psychiatric symptoms and in particular denies any symptoms of mood disorder or psychotic disorder. He is fairly distractible. He exhibits some staff splitting and cluster B personality traits. He exhibits some echopraxia. Remainder of the psychiatric ROS is negative. Some complaints of right hand pain, and the patient apparently recently suffered a right hand fracture. The patient is a 23 year-old man, domiciled with his mother grandmother in [place], single, unemployed, with psychiatric history of bipolar disorder, previous psychotic hospitalizations, no suicide attempts, he has established outpatient care in [facility], last psychiatric hospitalization was here in [place] in 2014 under the care of Dr. Dalal, documentation review, who was brought under [employer] act to the hospital due to aggressive behaviors with family. He was consulted to me for second opinion. On psychiatric evaluation the patient is calm, cooperative, requesting to be discharged. He says that he has a job interview tomorrow and is to go. He says that he is here wasting doctors time at this time "I don't need to be here ". He says that he has been most probably misunderstood by nurses and doctors "because I have an [place] M[place]ese accent". He says that he can understand the concern of the doctors "because I want to be a doctor myself". Patient is talkative, but not pressured, at times disorganized, but redirectable. He denies suicidal and homicidal ideation, he denies visual and auditory hallucinations. He is oriented 3. Review of Systems Except as stated in HPI: all other systems reviewed are Neg Past Family Social History Coded Allergies: cat dander (Unverified Allergy, Severe, Sneezing, 10/12/17) Active Scripts Diclofenac Sodium DR (Diclofenac Sodium DR) 75 Mg Tabdr, 75 MG PO BID, #30 TAB 0 Refills Prov:José Mccracken MD 10/26/17 Reported Medications Hydroxyzine Pamoate (Vistaril) 50 Mg Cap, 50 MG PO BID, CAP 0 Refills 10/26/17 Divalproex ER (Depakote ER) 500 Mg Omar, 500 MG PO HS for Control Seizures, # 30 TAB 0 Refills 10/26/17 Aripiprazole (Abilify) 15 Mg Tab, 15 MG PO HS, #30 TAB 0 Refills 10/24/17 Discontinued Reported Medications Valproic Acid (Valproic Acid) 250 Mg Cap, 1000 MG PO HS, #90 CAP 0 Refills 10/24/17 Aripiprazole Lauroxil ER Inj (Aristada ER Inj) 1,064 Mg/3.9 Ml Suser.syr, 1064 MG IM Q60D, SYRINGE 0 Refills 10/24/17 Fluoxetine (Prozac) 10 Mg Cap, 10 MG PO DAILY, #30 CAP 0 Refills 10/12/17 Quetiapine (Seroquel) 200 Mg Tab, 200 MG PO BID, #60 TAB 0 Refills 10/12/17 Current Medications Medications (Trade) Dose Ordered Sig/Prem Route Start Time Stop Time Status Last Admin (Ativan Inj) 2 mg ONCE PRN IM 10/29/17 00:45 10/29/17 01:24 (Haldol Inj) 5 mg ONCE PRN IM 10/29/17 00:45 10/29/17 01:25 (Benadryl Inj) 50 mg ONCE PRN IM 10/29/17 00:45 10/29/17 01:25 (Benadryl) 50 mg HS PRN PO 10/29/17 06:00 (Tylenol) 650 mg Q4H PRN PO 10/29/17 06:00 (Milk Of Magnesia Liq) 30 ml DAILY PRN PO 10/29/17 06:00 (Mag-Al Plus Susp Liq) 30 ml Q6H PRN PO 10/29/17 06:00 (Habitrol 21 Mg Patch.24 Hr) 1 patch DAILY PRN T-DERMAL 10/29/17 06:00 (Cogentin) 1 mg Q12H PRN PO 10/29/17 06:00 (Cogentin Inj) 1 mg Q12H PRN IM 10/29/17 06:00 (Motrin) 600 mg Q8H PRN PO 10/29/17 11:45 10/29/17 12:45 (SEROquel) 100 mg DAILY PO 10/30/17 09:00 (SEROquel) 400 mg HS PO 10/29/17 21:00 (Geodon Inj) 20 mg BID PRN IM 10/29/17 11:45 UNV (Ativan) 1 mg Q6H PRN PO 10/29/17 11:45 (Ativan Inj) 1 mg Q6H PRN IM 10/29/17 11:45 Social History Patient was born in [place], he lives in [place] with mother and grandmother , his single, unemployed, some college education Patient's Strengths (min. 2) In a monitored setting. Supportive family. Physical Exam Vital Signs Vital Signs Date Time Temp Pulse Resp B/P (MAP) Pulse Ox O2 Delivery O2 Flow Rate FiO2 10/29/17 06:22 98.2 75 16 139/73 (95) 99 I/O 10/29/17 10/29/17 10/30/17 08:00 16:00 00:00 Intake Total 520 ml Balance 520 ml Lab Results Test 10/29/17 00:15 White Blood Count 11.2 TH/MM3 Red Blood Count 5.63 MIL/MM3 Hemoglobin 11.9 GM/DL Hematocrit 36.1 % Mean Corpuscular Volume 64.1 FL Mean Corpuscular Hemoglobin 21.2 PG Mean Corpuscular Hemoglobin Concent 33.0 % Red Cell Distribution Width 15.7 % Platelet Count 336 TH/MM3 Mean Platelet Volume 7.6 FL Neutrophils (%) (Auto) 63.1 % Lymphocytes (%) (Auto) 25.9 % Monocytes (%) (Auto) 7.2 % Eosinophils (%) (Auto) 2.2 % Basophils (%) (Auto) 1.6 % Neutrophils # (Auto) 7.1 TH/MM3 Lymphocytes # (Auto) 2.9 TH/MM3 Monocytes # (Auto) 0.8 TH/MM3 Eosinophils # (Auto) 0.2 TH/MM3 Basophils # (Auto) 0.2 TH/MM3 CBC Comment AUTO DIFF Differential Comment AUTO DIFF CONFIRMED Urine Color YELLOW Urine Turbidity CLEAR Urine pH 7.0 Urine Specific [place] 1.009 Urine Protein NEG mg/dL Urine Glucose (UA) NEG mg/dL Urine Ketones NEG mg/dL Urine Occult Blood NEG Urine Nitrite NEG Urine Bilirubin NEG Urine Urobilinogen LESS THAN 2.0 MG/DL Urine Leukocyte Esterase NEG Urine RBC LESS THAN 1 /hpf Urine WBC LESS THAN 1 /hpf Urine Squamous Epithelial Cells <1 /hpf Urine Mucus FEW /lpf Microscopic Urinalysis Comment CULT NOT INDICATED Blood Urea Nitrogen 4 MG/DL Creatinine 1.00 MG/DL Random Glucose 92 MG/DL Calcium Level 8.8 MG/DL Sodium Level 142 MEQ/L Potassium Level 3.8 MEQ/L Chloride Level 104 MEQ/L Carbon Dioxide Level 29.1 MEQ/L Anion Gap 9 MEQ/L Estimat Glomerular Filtration Rate 93 ML/MIN Thyroid Stimulating Hormone 3rd Gen 2.500 uIU/ML Urine Opiates Screen NEG Urine Barbiturates Screen NEG Urine Amphetamines Screen NEG Urine Benzodiazepines Screen NEG Urine Cocaine Screen NEG Urine Cannabinoids Screen POS Ethyl Alcohol Level LESS THAN 3 MG/DL Mental Status Examination Appearance: Appropriate Consciousness: Alert, Vigilant Orientation: x4 Motor Activity: Normal gait Speech: Unremarkable Language: Adequate Fund of Knowledge: Adequate Attention and Concentration: Easily Distracted Memory: Unremarkable Mood: Angry, Irritable Affect: Irritable, Other (dysphoric) Thought Process & Associations: Intact Thought Content: Delusional Hallucination Type: Other (appears internally stimulated) Delusion Type: Paranoid Suicidal Ideation: No (unreliable to contract for safety) Suicidal Plan: No Suicidal Intention: No Homicidal Ideation: No (unreliable contract for safety) Homicidal Plan: No Homicidal Intention: No Insight: Poor Judgment: Poor Assessment & Plan Problem List: (1) Bipolar disorder, current episode mixed, severe, with psychotic features ICD Codes: F31.64 - Bipolar disorder, current episode mixed, severe, with psychotic features Assessment & Plan: I have seen and examined this patient, reviewed the documentation, I agree and concur with Dr. Jacobs assessment and plan. Consul appreciated. (2) Cannabis abuse ICD Codes: F12.10 - Cannabis abuse, uncomplicated Assessment & Plan Estimated LOS: days Request HC Surrog/Guard Advoc?: Yes Valerio Lee MD Oct 29, 2017 13:18
[2017-10-29 14:52] LABS: ALBUMIN 4.2 GM/DL (3.4-5.0); DIRECT BILIRUBIN ADULT 0.1 MG/DL (0.0-0.2)
--- NOTE | 2017-10-29 14:52 | PD.CONS ---
HPI Service [facility] Consult Requested By Primary Care Physician No Primary Care Physician Diagnoses: (1) Bipolar disorder, current episode mixed, severe, with psychotic features (2) Boxers fracture History of Present Illness 22M with h/o Bipolar disorder was admitted yesterday under Faye Act for threatening family members. He was treated on 10/26/17 for a Boxer's fracture, placed in a rigid cast, but when he arrived home it became uncomfortable, so he wrapped an concepcion bandage around his hand instead. On admission he lost the concepcion bandage and now has no protection or support on that hand. Review of Systems Constitutional: DENIES: Fever, Change in appetite, Night Sweats Endocrine: DENIES: Polyuria, Polyphagia Ears, nose, mouth, throat: DENIES: Hearing loss, Throat pain, Hoarseness, Ear Pain, Sinus Pain, Toothache Respiratory: DENIES: Cough, Hemoptysis Cardiovascular: DENIES: Chest pain, Palpitations, Syncope Genitourinary: DENIES: Urgency, Hematuria Musculoskeletal: COMPLAINS OF: Joint pain, Joint Swelling, DENIES: Back pain Neurologic: COMPLAINS OF: Abnormal gait, DENIES: Localized weakness, Seizures Psychiatric: COMPLAINS OF: Mood changes, DENIES: Anxiety, Confusion, Hallucinations, Suicidal Ideation Past Family Social History Allergies: Coded Allergies: cat dander (Unverified Allergy, Severe, Sneezing, 10/12/17) Past Medical History Bipolar Disorder Past Surgical History none Family History None Social History 1 PPD smoker, social alcohol use Physical Exam Vital Signs Vital Signs Date Time Temp Pulse Resp B/P (MAP) Pulse Ox O2 Delivery O2 Flow Rate FiO2 10/29/17 06:22 98.2 75 16 139/73 (95) 99 10/28/17 23:56 98.2 83 16 127/79 (95) 99 Physical Exam GENERAL: Well-nourished, well-developed patient. SKIN: Warm and dry. HEAD: Normocephalic. EYES: No scleral icterus. No injection or drainage. NECK: Supple, trachea midline. No JVD or lymphadenopathy. CARDIOVASCULAR: Regular rate and rhythm without murmurs, gallops, or rubs. RESPIRATORY: Breath sounds equal bilaterally. No accessory muscle use. GASTROINTESTINAL: Abdomen soft, non-tender, nondistended. MUSCULOSKELETAL: Swelling and tenderness of right 5th metatarsal, unable to make a fist, sensation intact NEUROLOGICAL: Awake, alert, and oriented x 3. Non-focal. Laboratory Laboratory Tests Test 10/29/17 00:15 White Blood Count 11.2 Red Blood Count 5.63 Hemoglobin 11.9 Hematocrit 36.1 Mean Corpuscular Volume 64.1 Mean Corpuscular Hemoglobin 21.2 Mean Corpuscular Hemoglobin Concent 33.0 Red Cell Distribution Width 15.7 Platelet Count 336 Mean Platelet Volume 7.6 Neutrophils (%) (Auto) 63.1 Lymphocytes (%) (Auto) 25.9 Monocytes (%) (Auto) 7.2 Eosinophils (%) (Auto) 2.2 Basophils (%) (Auto) 1.6 Neutrophils # (Auto) 7.1 Lymphocytes # (Auto) 2.9 Monocytes # (Auto) 0.8 Eosinophils # (Auto) 0.2 Basophils # (Auto) 0.2 CBC Comment AUTO DIFF Differential Comment AUTO DIFF CONFIRMED Urine Color YELLOW Urine Turbidity CLEAR Urine pH 7.0 Urine Specific [place] 1.009 Urine Protein NEG Urine Glucose (UA) NEG Urine Ketones NEG Urine Occult Blood NEG Urine Nitrite NEG Urine Bilirubin NEG Urine Urobilinogen LESS THAN 2.0 Urine Leukocyte Esterase NEG Urine RBC LESS THAN 1 Urine WBC LESS THAN 1 Urine Squamous Epithelial Cells <1 Urine Mucus FEW Microscopic Urinalysis Comment CULT NOT INDICATED Blood Urea Nitrogen 4 Creatinine 1.00 Random Glucose 92 Calcium Level 8.8 Sodium Level 142 Potassium Level 3.8 Chloride Level 104 Carbon Dioxide Level 29.1 Anion Gap 9 Estimat Glomerular Filtration Rate 93 Thyroid Stimulating Hormone 3rd Gen 2.500 Urine Opiates Screen NEG Urine Barbiturates Screen NEG Urine Amphetamines Screen NEG Urine Benzodiazepines Screen NEG Urine Cocaine Screen NEG Urine Cannabinoids Screen POS Ethyl Alcohol Level LESS THAN 3 Result Diagram: 10/29/175 10/29/1714 Assessment and Plan Problem List: (1) Bipolar disorder, current episode mixed, severe, with psychotic features ICD Code: F31.64 - Bipolar disorder, current episode mixed, severe, with psychotic features (2) Boxers fracture ICD Code: S62.339A - Displaced fracture of neck of unspecified metacarpal bone , initial encounter for closed fracture Assessment and Plan Boxer's Fracture, right distal 5th MT X-ray image and report reviewed. There appears to be a 30-40 degree angulation on the distal fracture. Consult lead principal technical architect for temporary splint Consult orthopedic surgery for review of films to determine best treatment Will follow up Leukocytosis Patient is afebrile, right hand is swollen from fracture but not abnormally warm or erythematous He denies dysuria, denies cough, denies sore throat or sinus pain WBC = 11.2, possibly from stress reaction at time of admission Will repeat labwork to see WBC trend Bipolar Disorder Admitted under Faye Act for threats to his family He seems reasonable and cooperative during our visit Luciano Cantu MD Oct 29, 2017 14:52
[2017-10-29 14:54] LABS: INDIRECT BILIRUBIN 0.3 MG/DL (0.0-0.8); TOTAL BILIRUBIN ADULT 0.4 MG/DL (0.2-1.0); TOTAL PROTEIN 7.4 GM/DL (6.4-8.2)
[2017-10-29] MEDS: LORazepam 1 MG TAB PO PRN ×2 (15:02→20:29)
[2017-10-29 17:18] VITALS: BP 138/73; PULSE 84; RESP 18; TEMP 98.1; O2SAT 98
[2017-10-29] MEDS: QUEtiapine FUMARATE 200 MG TAB PO SCH (20:30)
[2017-10-30 05:47] VITALS: BP 135/63; PULSE 87; RESP 17; TEMP 97.2; O2SAT 98
[2017-10-30 08:09] LABS: AUTOMATED NEUTROPHIL # 4.1 TH/MM3 (1.8-7.7); BASOPHIL % 0.2 % (0.0-2.0); EOSINOPHIL # 0.2 TH/MM3 (0-0.4); EOSINOPHIL % 3.6 % (0.0-4.0); HEMATOCRIT 40.1 % (39.0-51.0); HEMOGLOBIN 12.7 GM/DL (13.0-17.0); LYMPH % 25.9 % (9.0-44.0); LYMPHOCYTE # 1.8 TH/MM3 (1.0-4.8); MEAN CELL VOLUME 64.9 FL (80.0-100.0); MEAN CORPUSCULAR HEMOGLOBIN 20.5 PG (27.0-34.0); MEAN CORPUSCULAR HGB CONC 31.6 % (32.0-36.0); MEAN PLATELET VOLUME 7.8 FL (7.0-11.0); MONO % 10.1 % (0.0-8.0); MONOCYTE # 0.7 TH/MM3 (0-0.9); NEUT % 60.2 % (16.0-70.0); PLATELET COUNT 359 TH/MM3 (150-450); RED BLOOD COUNT 6.18 MIL/MM3 (4.50-5.90); RED CELL DISTRIBUTION WIDTH 15.8 % (11.6-17.2); WHITE BLOOD COUNT 6.8 TH/MM3 (4.0-11.0)
[2017-10-30 08:42] LABS: CHOLESTEROL 134 MG/DL (120-200); CHOLESTEROL/ HDL RATIO 4.22 RATIO; HDL CHOLESTEROL 31.7 MG/DL (40.0-60.0); LDL CHOLESTEROL 78 MG/DL (0-99); TRIGLYCERIDES 123 MG/DL (42-150)
[2017-10-30] MEDS: QUEtiapine FUMARATE 100 MG TAB PO SCH ×2 (09:00→09:15)
--- NOTE | 2017-10-30 10:47 | HHI.PYPN ---
Subjective Chief Complaint: Bipolar Mixed Remarks Patient seen and examined with nurse. Chart reviewed. Patient refused HS Seroquel. Case discussed with nursing staff who reports patient has been antisocial and narcissistic in his presentation and quite disrespectful. On my exam, the patient remains psychotic and paranoid. As noted by nurse, he does indeed display prominent cluster B personality traits. He is angry, hostile, entitled. He tells me with evident pride that he is the "person who broke out of [employer]." He endeavors to be mocking and antagonistic. Charted to have slept only 5 hours last night. He insists that he needs to be on the meds he was on at [facility], although I do note that he required rehospitalization on this regimen. Patient says that he wishes to fire me as his physician and have Dr. Lee oversee his care. I did discuss the case with Dr. Lee, who has declined to take the case at this time. I called over to [facility] for med list. As of 10/28/17 he was prescribed: Depakote 500mg BID Hydroxyzine 50mg BID Abilify 15mg daily Spoke with patient's mother/HCS. We discuss patient's non-adherence with medications and possible adjustments to his regimen to counteract this. He previously did well on the Seroquel 400mg HS per mother. We discuss at length alternative antipsychotic options including: Abilify, Risperdal, Invega, Prolixin, Geodon, Zyprexa. He did not do well with Haldol per mother. We discuss the various routes of treatment including PO, short acting IM and LANDRY antipsychotics. We discuss mood stabilizers including lithium, VPA, CBZ. Mother notes that patient has been calling her and telling her that he wants to get on his scooter and take off as soon as he is discharged. She notes that his current presentation is very much not his baseline personality, which she describes as "mellow and kind of quiet." Mother would like to continue current regimen for now and research these other options tonight. We will discuss med changes further tomorrow. I spent ~20min in telephone consultation with mother. I spent >35 min in total today on this case. Review of Systems ROS Limitations: Psychotic, Poor Historian Except as stated in HPI: all other systems reviewed are Neg Mental Status Examination Appearance: Appropriate Consciousness: Alert, Vigilant Orientation: x4 Motor Activity: Normal gait, Other (No motor abnormalities noted.) Speech: Other (Angry, terse) Language: Adequate Fund of Knowledge: Adequate Attention and Concentration: Easily Distracted Memory: Unremarkable Mood: Angry, Oppositional, Irritable Affect: Irritable, Other (dysphoric) Thought Process & Associations: Intact Thought Content: Delusional Hallucination Type: Other (Remains int stim) Delusion Type: Paranoid Suicidal Ideation: No (unreliable to contract for safety) Suicidal Plan: No Suicidal Intention: No Homicidal Ideation: No (unreliable contract for safety) Homicidal Plan: No Homicidal Intention: No Insight: Poor Judgment: Poor Results Labs Test 10/30/17 07:20 White Blood Count 6.8 TH/MM3 Red Blood Count 6.18 MIL/MM3 Hemoglobin 12.7 GM/DL Hematocrit 40.1 % Mean Corpuscular Volume 64.9 FL Mean Corpuscular Hemoglobin 20.5 PG Mean Corpuscular Hemoglobin Concent 31.6 % Red Cell Distribution Width 15.8 % Platelet Count 359 TH/MM3 Mean Platelet Volume 7.8 FL Neutrophils (%) (Auto) 60.2 % Lymphocytes (%) (Auto) 25.9 % Monocytes (%) (Auto) 10.1 % Eosinophils (%) (Auto) 3.6 % Basophils (%) (Auto) 0.2 % Neutrophils # (Auto) 4.1 TH/MM3 Lymphocytes # (Auto) 1.8 TH/MM3 Monocytes # (Auto) 0.7 TH/MM3 Eosinophils # (Auto) 0.2 TH/MM3 Basophils # (Auto) 0.0 TH/MM3 CBC Comment DIFF FINAL Differential Comment Triglycerides Level 123 MG/DL Cholesterol Level 134 MG/DL LDL Cholesterol 78 MG/DL HDL Cholesterol 31.7 MG/DL Cholesterol/HDL Ratio 4.22 RATIO Anemia and leukocytosis improved. LFTs wnl. Depakote level was 90, suggesting adherence with this medication. EKG NSR QTc 395ms, not prolonged. Vitals/IOs Vital Signs Date Time Temp Pulse Resp B/P (MAP) Pulse Ox O2 Delivery O2 Flow Rate FiO2 10/30/17 05:47 97.2 87 17 135/63 (87) 98 Assessment & Plan Problem List: (1) Bipolar disorder, current episode mixed, severe, with psychotic features ICD Codes: F31.64 - Bipolar disorder, current episode mixed, severe, with psychotic features (2) Cannabis abuse ICD Codes: F12.10 - Cannabis abuse, uncomplicated Assessment & Plan Continue Seroquel 100/400mg as ordered for now. Anticipate med changes after discussion with HCS tomorrow. Hospitalist input noted and appreciated. Continue to monitor on the high acuity unit. Continue other medications and care as ordered. Justification for Cont. Inpt. Impairment in reality construction. High risk for decompensation in less restrictive environment. Discharge Planning Pending psychiatric stabilization Request HC Surrog/Guard Advoc?: Yes Raghavendra Jacobs MD Oct 30, 2017 10:47
--- NOTE | 2017-10-30 13:47 | EKG ---
Date Performed: 10/30/2017 Time Performed: 11:34:35 PTAGE: 22 years EKG: Sinus rhythm MARKED LEFT AXIS DEVIATION ABNORMAL ECG NO PREVIOUS TRACING DOCTOR: Nahum Romero Interpretating Date/Time 10/30/2017 13:45:24
[2017-10-30 16:47] LABS: HEMOGLOBIN A1C 5.1 % (4.3-6.0)
[2017-10-30 16:53] VITALS: BP 144/68; PULSE 89; RESP 18; TEMP 98.3; O2SAT 98
--- NOTE | 2017-10-30 17:20 | HHI.PR ---
Subjective Remarks Pain control. Is still able to move his fingers without numbness Objective Vitals Vital Signs Date Time Temp Pulse Resp B/P (MAP) Pulse Ox O2 Delivery O2 Flow Rate FiO2 10/30/17 16:53 98.3 89 18 144/68 (93) 98 10/30/17 05:47 97.2 87 17 135/63 (87) 98 10/29/17 17:18 98.1 84 18 138/73 (94) 98 I/O 10/29/17 10/29/17 10/29/17 10/30/17 10/30/17 10/30/17 07:00 15:00 23:00 07:00 15:00 23:00 Intake Total 520 ml Balance 520 ml Intake Oral 520 ml Result Diagram: 10/30/17 0720 10/29/17 0015 Objective Remarks GENERAL: This is a well-nourished, well-developed patient, in no apparent distress. CARDIOVASCULAR: Regular rate and rhythm RESPIRATORY: Clear to auscultation. Breath sounds equal bilaterally. No wheezes , rales, or rhonchi. GASTROINTESTINAL: Abdomen soft, non-tender, nondistended. Normal active bowel sounds Extremities: Right hand with mild swelling and tenderness over the right fourth and fifth dorsal metacarpal area, patient is neurovascularly intact. NEURO: Alert & Oriented x4 to person, place, time, situation. Moves all ext x4 A/P Problem List: (1) Bipolar disorder, current episode mixed, severe, with psychotic features ICD Code: F31.64 - Bipolar disorder, current episode mixed, severe, with psychotic features Status: Acute (2) Boxers fracture ICD Code: S62.339A - Displaced fracture of neck of unspecified metacarpal bone , initial encounter for closed fracture Status: Acute Assessment and Plan Boxer's Fracture, right distal 5th MT X-ray image and report shows a 30-40 degree angulation on the distal fracture. Consult police crime scene technician for temporary splint Right lateral gutter splint to be placed Await orthopedic surgery final recommendations and follow-up as an outpatient. Continue pain control. Leukocytosis likely due to stress reaction as repeat WBC has trended down. Patient is afebrile, right hand is swollen from fracture Bipolar Disorder - Seroquel and Ativan, per psychiatry Problem Qualifiers (1) Boxers fracture: Qualified Codes: S62.339A - Displaced fracture of neck of unspecified metacarpal bone, initial encounter for closed fracture Diamond Robbins MD Oct 30, 2017 17:19
[2017-10-30] MEDS: QUEtiapine FUMARATE 200 MG TAB PO SCH (20:33)
[2017-10-30] MEDS: IBUPROFEN 600 MG TAB PO PRN (23:31)
[2017-10-31 06:09] VITALS: BP 124/76; PULSE 81; RESP 18; TEMP 98.2; O2SAT 99
[2017-10-31] MEDS: QUEtiapine FUMARATE 100 MG TAB PO SCH (07:49)
--- NOTE | 2017-10-31 08:47 | HHI.PYPN ---
Subjective Chief Complaint: Bipolar Mixed Remarks I was called in response to a code barnhart called on patient this morning. Case discussed with nursing staff. Patient had reportedly been agitated and verbally abusive to staff and other patients overnight. This morning, nursing staff tells me that the patient threatened to blow up the hospital and became physically aggressive with staff. On my arrival, patient is being managed appropriately by staff in preparation for initiation of locked restraints. I have additionally ordered the patient medicated with Kobi santacruz with additional Ativan and Benadryl IM ETO. Patient remains resistive and struggling. He is hurling insults at the floor staff and has singled one of the floor staff out in particular as the focus of his insults. He remains quite threatening. At no point is there any evidence of physical distress or respiratory compromise. I was present at initiation of violent restraint. Case discussed in treatment team. I returned to see patient on afternoon round. He has received only a single dose of Thorazine IM, the remainder having been held due to sedation. He is out of restraints and in a private room. He is presently sleeping but arouses easily to voice. He is calm. He tells me "I understand you're doing your job and you're doing a good job." He denies side effects from medications besides some sedation. No EPS. Modification to plan as detailed below. Review of Systems ROS Limitations: Uncooperative, Psychotic, Poor Historian Except as stated in HPI: all other systems reviewed are Neg Mental Status Examination Appearance: Appropriate Consciousness: Alert, Vigilant Orientation: x4 Motor Activity: Normal gait, Other (No motor abnormalities noted.) Speech: Other (Yelling) Language: Adequate Fund of Knowledge: Adequate Attention and Concentration: Easily Distracted Memory: Unremarkable Mood: Angry, Oppositional, Irritable Affect: Irritable, Other (dysphoric) Thought Process & Associations: Circumstantial Thought Content: Delusional Hallucination Type: Other (internally stimulated) Delusion Type: Paranoid Suicidal Ideation: No Homicidal Ideation: Yes (issuing threats to staff) Insight: Poor Judgment: Poor Mental Status Exam Remarks Exam is from contact this morning. Results Labs EKG sinus rhythm, QTc 386ms. Repeat EKG at 2pm. QTc remains wnl. Vitals/IOs Vital Signs Date Time Temp Pulse Resp B/P (MAP) Pulse Ox O2 Delivery O2 Flow Rate FiO2 2/2/18 06:09 98.2 81 18 124/76 (92) 99 Assessment & Plan Problem List: (1) Bipolar disorder, current episode mixed, severe, with psychotic features ICD Codes: F31.64 - Bipolar disorder, current episode mixed, severe, with psychotic features Status: Acute (2) Cannabis abuse ICD Codes: F12.10 - Cannabis abuse, uncomplicated Assessment & Plan Due to severe agitation and threat to others, discontinue existing psychotropics and initiate Thorazine 50mg IM q1h until calm. I have discussed the R/B/A of this strategy at length with mother/HCS over the phone including the potential cardiac risk. Check EKG at 2pm and again tomorrow morning. Vitals q1h while receiving Thorazine IM. Check CK and BMP in morning secondary to need for restraints. Check repeat XR hand to ensure this was not further injured in restraint efforts. D/c restraints once safe to do so. Case d/w RN. Continue other meds and care as ordered. Modifications based on afternoon round: Change Thorazine to 50mg IM q1h p.r.n. at the first sign of agitation with injections to continue hourly until patient is calm. Vitals q4h. Case d/w RN. Weekend rounding physician: please assess 24 hour Thorazine requirement Friday and, if appropriate, start oral Thorazine based on this requirement. Continue p.r.n. Thorazine and adjust oral Thorazine dose Friday based on ongoing p.r.n. requirement. Justification for Cont. Inpt. Impairment in safety. Impairment in reality construction. Medication changes. High risk for decompensation in less restrictive environment. Discharge Planning Pending psychiatric stabilization Request HC Surrog/Guard Advoc?: Yes Raghavendra Jacobs MD Oct 31, 2017 08:47
--- NOTE | 2017-10-31 09:19 | RADRPT ---
EXAM DATE/TIME: 10/31/2017 08:59 [facility] COMPARISON: HAND RIGHT COMPLETE ([id number]), October 26, 2017, 2:03. INDICATIONS : Assess for evolution of known fracture, right hand pain. MEDICAL HISTORY : Schizophrenia. Smoker. SURGICAL HISTORY : None. ENCOUNTER: Subsequent ACUITY: 1 week PAIN SCORE: 4/10 LOCATION: Right hand. FINDINGS: Limited AP and lateral views of the right hand were obtained and demonstrate a boxer's type fracture involving the fifth metacarpal neck. There is mild volar angulation again noted. There is no distract ion. No other bony abnormalities are present. CONCLUSION: Stable appearance of the boxers type fracture. Gurwinder Ham MD on October 31, 2017 at 9:14 Board Certified Radiologist. This report was verified electronically.
[2017-10-31] MEDS: LORazepam 2 MG/ML VIAL IM PRN (09:20)
[2017-10-31] MEDS: diphenhydrAMINE HCL 50 MG/ML VIAL IM PRN (09:21)
[2017-10-31 09:23] VITALS: BP 115/55; PULSE 96; RESP 18; TEMP 99; O2SAT 99
--- NOTE | 2017-10-31 12:58 | PD.CONS ---
HPI Service [facility] Consult Requested By Primary Care Physician No Primary Care Physician Admission Diagnosis BPAD Diagnoses: (1) Bipolar disorder, current episode mixed, severe, with psychotic features (2) Boxers fracture Diagnosis: Principal Chief Complaint: psychotic episode History of Present Illness Patient is a 22-year-old male who is admitted under a Faye act for psychotic episode with known bipolar disorder. He was found to have a boxer's fracture on presentation and has been placed into a splint. Currently, I'm unable to evaluate the patient as he is on lockdown and isolation for attempting to leave while still under Faye act. Patient has been highly combative today and for my safety and the patient's, examination currently is deferred. Review of Systems ROS Limitations: Clinical Condition, Uncooperative Past Family Social History Past Medical History Bipolar disorder with psychotic episodes Past Surgical History unable to obtain Reported Medications please see full chart Allergies: Coded Allergies: cat dander (Unverified Allergy, Severe, Sneezing, 10/12/17) Active Ordered Medications Current Medications Medications (Trade) Dose Ordered Sig/Prem Route Start Time Stop Time Status Last Admin (Ativan Inj) 2 mg ONCE PRN IM 10/29/17 00:45 10/31/17 09:20 (Haldol Inj) 5 mg ONCE PRN IM 10/29/17 00:45 10/29/17 01:25 (Benadryl Inj) 50 mg ONCE PRN IM 10/29/17 00:45 10/31/17 09:21 (Benadryl) 50 mg HS PRN PO 10/29/17 06:00 (Tylenol) 650 mg Q4H PRN PO 10/29/17 06:00 (Milk Of Magnesia Liq) 30 ml DAILY PRN PO 10/29/17 06:00 (Mag-Al Plus Susp Liq) 30 ml Q6H PRN PO 10/29/17 06:00 (Habitrol 21 Mg Patch.24 Hr) 1 patch DAILY PRN T-DERMAL 10/29/17 06:00 (Cogentin) 1 mg Q12H PRN PO 10/29/17 06:00 (Cogentin Inj) 1 mg Q12H PRN IM 10/29/17 06:00 (Motrin) 600 mg Q8H PRN PO 10/29/17 11:45 10/30/17 23:31 (Geodon Inj) 20 mg BID PRN IM 10/29/17 11:45 10/31/17 09:21 (Ativan) 1 mg Q6H PRN PO 10/29/17 11:45 10/29/17 20:29 (Ativan Inj) 1 mg Q6H PRN IM 10/29/17 11:45 (Thorazine Inj) 50 mg Q1HR IM 10/31/17 10:00 11/01/17 09:59 10/31/17 10:00 Reported Meds & Active Scripts Active Diclofenac Sodium DR (Diclofenac Sodium) 75 Mg Tabdr 75 Mg PO BID Reported Vistaril (Hydroxyzine Pamoate) 50 Mg Cap 50 Mg PO BID Depakote ER (Divalproex Sodium) 500 Mg Omar 500 Mg PO HS Abilify (Aripiprazole) 15 Mg Tab 15 Mg PO HS Family History noncontributory Social History bipolar disorder with schizoaffective Physical Exam Vital Signs Vital Signs Date Time Temp Pulse Resp B/P (MAP) Pulse Ox O2 Delivery O2 Flow Rate FiO2 10/31/17 06:09 98.2 81 18 124/76 (92) 99 10/30/17 16:53 98.3 89 18 144/68 (93) 98 Physical Exam Exam deferred due to patient's clinical status. Right hand is in splints per video feed. Result Diagram: 10/30/17 0720 10/29/17 0015 Imaging Right hand radiographs demonstrate a fifth metacarpal neck fracture that is angulated approximately 30-40. Assessment & Plan Assessment and Plan 22-year-old male with bipolar disorder and acute psychotic episode with right fifth metacarpal neck fracture At this time unable to have full discussion with patient given his mental status. Would recommend continued nonoperative care at this time and 8 on her gutter splint with his MCP joints flexed 70-80. Would plan to have the patient follow-up in approximately 1-2 weeks for repeat radiographs ideally in office. Kristen Moreno MD Oct 31, 2017 12:58
[2017-10-31 13:08] VITALS: BP 130/59; PULSE 78; RESP 18; TEMP 98; O2SAT 100
--- NOTE | 2017-10-31 17:06 | HHI.PR ---
Subjective Remarks Sedated. Nursing staff states that he was agitated all day and needed to be on restraints. Objective Vitals Vital Signs Date Time Temp Pulse Resp B/P (MAP) Pulse Ox O2 Delivery O2 Flow Rate FiO2 10/31/17 13:08 98.0 78 18 130/59 (82) 100 10/31/17 09:23 99.0 96 18 115/55 (75) 99 10/31/17 06:09 98.2 81 18 124/76 (92) 99 Result Diagram: 10/30/17 0720 10/29/17 0015 Objective Remarks GENERAL: This is a well-nourished, well-developed patient, in no apparent distress -sedated and sleeping. Right hand in splint Due to his agitation earlier, other examination deferred A/P Problem List: (1) Bipolar disorder, current episode mixed, severe, with psychotic features ICD Code: F31.64 - Bipolar disorder, current episode mixed, severe, with psychotic features Status: Acute (2) Boxers fracture ICD Code: S62.339A - Displaced fracture of neck of unspecified metacarpal bone , initial encounter for closed fracture Status: Acute Assessment and Plan Boxer's Fracture, right distal 5th MT X-ray image and report shows a 30-40 degree angulation on the distal fracture. Consulted procedures tech for temporary splint Right lateral gutter splint to be placed as best as possible however due to patient's agitation, difficult to manage. Follow-up with orthopedic surgery - too agitated to consider surgery at this time. Follow-up as an outpatient Continue pain control. Leukocytosis likely due to stress reaction as repeat WBC has trended down. Patient has been afebrile Acute exacerbation of Bipolar Disorder - Seroquel and Ativan, per psychiatry Problem Qualifiers (1) Boxers fracture: Qualified Codes: S62.339A - Displaced fracture of neck of unspecified metacarpal bone, initial encounter for closed fracture Diamond Robbins MD Oct 31, 2017 17:06
[2017-10-31] MEDS: IBUPROFEN 600 MG TAB PO PRN (22:02)
[2017-10-31] MEDS: diphenhydrAMINE HCL 50 MG CAP PO PRN (22:03)
[2017-10-31 23:30] VITALS: BP 126/71; PULSE 95; RESP 16; TEMP 99.1; O2SAT 100
[2017-11-01] MEDS: ACETAMINOPHEN 325 MG TAB PO PRN ×2 (01:03→23:21)
[2017-11-01 09:03] LABS: BICARBONATE 28.6 MEQ/L (21.0-32.0); CALCIUM 8.9 MG/DL (8.5-10.1); CREATININE 1.13 MG/DL (0.60-1.30)
[2017-11-01] MEDS: IBUPROFEN 600 MG TAB PO PRN (12:53)
--- NOTE | 2017-11-01 13:08 | EKG ---
Date Performed: 10/31/2017 Time Performed: 13:45:11 PTAGE: 22 years EKG: Sinus rhythm NONSPECIFIC T-WAVE ABNORMALITY When compared to previous tracing, axis is slightly less leftward, Ot herwise no significant change. BORDERLINE ECG PREVIOUS TRACING : 10/30/2017 11.34 DOCTOR: Jae Daniels Interpretating Date/Time 11/01/2017 13:07:08
[2017-11-01] MEDS: NICOTINE 21 MG/24 HR PATCH T-DERMAL PRN (13:51)
--- NOTE | 2017-11-01 14:47 | HHI.PR ---
Subjective Remarks complains of pain in right hand Objective Vitals Vital Signs Date Time Temp Pulse Resp B/P (MAP) Pulse Ox O2 Delivery O2 Flow Rate FiO2 11/01/17 13:52 18 10/31/17 23:30 99.1 95 16 126/71 (89) 100 Result Diagram: 10/30/17 0720 11/01/17 0809 Other Results Laboratory Tests Test 10/30/17 07:20 11/01/17 08:09 White Blood Count 6.8 TH/MM3 Red Blood Count 6.18 MIL/MM3 Hemoglobin 12.7 GM/DL Hematocrit 40.1 % Mean Corpuscular Volume 64.9 FL Mean Corpuscular Hemoglobin 20.5 PG Mean Corpuscular Hemoglobin Concent 31.6 % Red Cell Distribution Width 15.8 % Platelet Count 359 TH/MM3 Mean Platelet Volume 7.8 FL Neutrophils (%) (Auto) 60.2 % Lymphocytes (%) (Auto) 25.9 % Monocytes (%) (Auto) 10.1 % Eosinophils (%) (Auto) 3.6 % Basophils (%) (Auto) 0.2 % Neutrophils # (Auto) 4.1 TH/MM3 Lymphocytes # (Auto) 1.8 TH/MM3 Monocytes # (Auto) 0.7 TH/MM3 Eosinophils # (Auto) 0.2 TH/MM3 Basophils # (Auto) 0.0 TH/MM3 CBC Comment DIFF FINAL Differential Comment Hemoglobin A1c 5.1 % Triglycerides Level 123 MG/DL Cholesterol Level 134 MG/DL LDL Cholesterol 78 MG/DL HDL Cholesterol 31.7 MG/DL Cholesterol/HDL Ratio 4.22 RATIO Blood Urea Nitrogen 6 MG/DL Creatinine 1.13 MG/DL Random Glucose 143 MG/DL Calcium Level 8.9 MG/DL Sodium Level 138 MEQ/L Potassium Level 3.4 MEQ/L Chloride Level 102 MEQ/L Carbon Dioxide Level 28.6 MEQ/L Anion Gap 7 MEQ/L Estimat Glomerular Filtration Rate 81 ML/MIN Total Creatine Kinase 1140 U/L Creatine Kinase MB 6.6 NG/ML Creatine Kinase MB % 0.6 % Imaging Last Impressions Hand X-Ray 10/31/17 0000 Signed Impressions: Service Date/Time: Tuesday, October 31, 2017 08:59 - CONCLUSION: Stable appearance of the boxers type fracture. Gurwinder Ham MD Objective Remarks GENERAL: awake and alert SKIN: Warm and dry. HEAD: Atraumatic. Normocephalic. EYES: Pupils equal and round. No scleral icterus. No injection or drainage. EOMI ENT: No nasal bleeding or discharge. Mucous membranes pink and moist.TONGUE MIDLINE NECK: Trachea midline. No JVD. SUPPLE CARDIOVASCULAR: Regular rate and rhythm. S1, S2 NO S3 OR S4 RESPIRATORY: No accessory muscle use. Clear to auscultation. Breath sounds equal bilaterally. GASTROINTESTINAL: Abdomen soft, non-tender, nondistended. Hepatic and splenic margins not palpable. MUSCULOSKELETAL: Extremities without clubbing, cyanosis, or edema. No obvious deformities. NEUROLOGICAL: Awake and alert. No obvious cranial nerve deficits. Motor grossly within normal limits. Five out of 5 muscle strength in the arms and legs. Normal speech.RIGHT HAND IN SPLINT PSYCHIATRIC: INAppropriate mood and affect; insight and judgment ABnormal. Procedures none Medications and IVs Current Medications Lorazepam (Ativan Inj) 2 mg ONCE PRN IM AGITATION Last administered on 09:20; Start 10/29/17 at 00:45 Haloperidol Lactate (Haldol Inj) 5 mg ONCE PRN IM AGITATION Last administered on 10/29/17at 01:25; Start 10/29/17 at 00:45 Diphenhydramine HCl (Benadryl Inj) 50 mg ONCE PRN IM AGITATION Last administered on 10/31/17 09:21; Start 10/29/17 at 00:45 Diphenhydramine HCl (Benadryl) 50 mg HS PRN PO INSOMNIA Last administered on 10/31/17at 22:03; Start 10/29/17 at 06:00 Acetaminophen (Tylenol) 650 mg Q4H PRN PO Pain 1-5 or Temp >101F Last administered on 11/01/17 01:03; Start 10/29/17 at 06:00 Magnesium Hydroxide (Milk Of Magnesia Liq) 30 ml DAILY PRN PO CONSTIPATION; Start 10/29/17 at 06:00 Al Hydrox/Mg Hydrox/Simethicone (Mag-Al Plus Susp Liq) 30 ml Q6H PRN PO DYSPEPSIA; Start 10/29/17 at 06:00 Nicotine (Habitrol 21 Mg Patch.24 Hr) 1 patch DAILY PRN T-DERMAL NICOTINE CRAVING Last administered on 11/01/17at 13:51; Start 10/29/17 at 06:00 Benztropine Mesylate (Cogentin) 1 mg Q12H PRN PO EXTRA PYRAMIDAL SYMPTOMS; Start 10/29/17 at 06:00 Benztropine Mesylate (Cogentin Inj) 1 mg Q12H PRN IM EXTRA PYRAMIDAL SYMPTOMS; Start 10/29/17 at 06:00 Ibuprofen (Motrin) 600 mg Q8H PRN PO Hand pain Last administered on 11/01/17at 12 :53; Start 10/29/17 at 11:45 Quetiapine Fumarate (SEROquel) 100 mg DAILY PO Last administered on 10/31/17at 07 :49; Start 10/30/17 at 09:00; Stop 10/31/17 at 08:44; Status DC Quetiapine Fumarate (SEROquel) 400 mg HS PO Last administered on 10/30/17at 20:33 ; Start 10/29/17 at 21:00; Stop 10/31/17 at 08:44; Status DC Ziprasidone (Geodon Inj) 20 mg BID PRN IM SEVERE AGITATION Last administered on 10/31/17at 09:21; Start 10/29/17 at 11:45; Stop 10/31/17 at 16:14; Status DC Lorazepam (Ativan) 1 mg Q6H PRN PO ANXIETY Last administered on 10/29/17at 20:29 ; Start 10/29/17 at 11:45 Lorazepam (Ativan Inj) 1 mg Q6H PRN IM ANXIETY, UNABLE TO TAKE PO; Start at 11:45 Chlorpromazine HCl (Thorazine Inj) 50 mg Q1HR IM Last administered on 10/31/17at 10:00; Start 10/31/17 at 10:00; Stop 10/31/17 at 16:14; Status DC Chlorpromazine HCl (Thorazine Inj) 50 mg Q1HR PRN IM First sign of agitation Last administered on 11/01/17at 06:10; Start 10/31/17 at 16:15 A/P Problem List: (1) Bipolar disorder, current episode mixed, severe, with psychotic features ICD Code: F31.64 - Bipolar disorder, current episode mixed, severe, with psychotic features Status: Acute (2) Boxers fracture ICD Code: S62.339A - Displaced fracture of neck of unspecified metacarpal bone , initial encounter for closed fracture Status: Acute Assessment and Plan Boxmegha's Fracture, right distal 5th MT X-ray image and report shows a 30-40 degree angulation on the distal fracture. Consulted orthopedic dentist for temporary splint Right lateral gutter splint to be placed as best as possible however due to patient's agitation, difficult to manage. Follow-up with orthopedic surgery - too agitated to consider surgery at this time. Follow-up as an outpatient Continue pain control. Leukocytosis likely due to stress reaction as repeat WBC has trended down. Patient has been afebrile Acute exacerbation of Bipolar Disorder - Seroquel and Ativan, per psychiatry WILL SIGN OFF Discharge Planning WILL SIGN OFF Problem Qualifiers (1) Boxers fracture: Qualified Codes: S62.339A - Displaced fracture of neck of unspecified metacarpal bone, initial encounter for closed fracture Osbaldo Bazzi DO Nov 01, 2017 14:47
--- NOTE | 2017-11-01 16:13 | HHI.PYPN ---
Subjective Chief Complaint: Bipolar Mixed Remarks Patient was seen and case discussed with nursing. Patient's behavior has improved compared to yesterday. He has not required any ETO's. He has not been aggressive, agitated, threatening towards others. He remains perseverative on getting a particular medication that starts with the D that he thinks was his antipsychotic which appears to be Depakote. Progress note was reviewed from yesterday where attending psychiatrist recommends by mouth Thorazine. However his when necessary Thorazine was discontinued this morning because his QTC was prolonged. Reviewing his medical record it appears he may have gotten an injection of Abilify Aristada, a long-acting injectable. Mental Status Examination Appearance: Appropriate Consciousness: Alert, Vigilant Orientation: x4 Motor Activity: Normal gait, Other (No motor abnormalities noted.) Speech: Other (Yelling) Language: Adequate Fund of Knowledge: Adequate Attention and Concentration: Easily Distracted Memory: Unremarkable Mood: Appropriate, Irritable Affect: Appropriate, Other (dysphoric) Thought Process & Associations: Circumstantial Thought Content: Delusional Hallucination Type: Other (internally stimulated) Delusion Type: Paranoid Suicidal Ideation: No Homicidal Ideation: No (issuing threats to staff) Insight: Poor Judgment: Poor Results Labs Test 11/01/17 08:09 Blood Urea Nitrogen 6 MG/DL Creatinine 1.13 MG/DL Random Glucose 143 MG/DL Calcium Level 8.9 MG/DL Sodium Level 138 MEQ/L Potassium Level 3.4 MEQ/L Chloride Level 102 MEQ/L Carbon Dioxide Level 28.6 MEQ/L Anion Gap 7 MEQ/L Estimat Glomerular Filtration Rate 81 ML/MIN Total Creatine Kinase 1140 U/L Creatine Kinase MB 6.6 NG/ML Creatine Kinase MB % 0.6 % Vitals/IOs Vital Signs Date Time Temp Pulse Resp B/P (MAP) Pulse Ox O2 Delivery O2 Flow Rate FiO2 11/01/17 13:52 18 10/31/17 23:30 99.1 95 126/71 (89) 100 Assessment & Plan Problem List: (1) Bipolar disorder, current episode mixed, severe, with psychotic features ICD Codes: F31.64 - Bipolar disorder, current episode mixed, severe, with psychotic features Status: Acute (2) Cannabis abuse ICD Codes: F12.10 - Cannabis abuse, uncomplicated Assessment & Plan Given it is unclear if patient received a long-acting injection I will hold off on any antipsychotics this weekend and recommend resuming by mouth Abilify given he received an Abilify injection. ETO's will be given as needed. EKG to be repeated tomorrow Justification for Cont. Inpt. Patient would decompensate in a less restrictive setting Request HC Surrog/Guard Advoc?: Yes Mega Padilla DO Nov 01, 2017 16:13
[2017-11-01 17:09] VITALS: BP 131/80; PULSE 119; RESP 18; TEMP 97.7; O2SAT 100
[2017-11-01 19:08] VITALS: BP 149/76; PULSE 102; RESP 18; TEMP 98.7; O2SAT 99
[2017-11-01] MEDS: LORazepam 1 MG TAB PO PRN (20:22)
[2017-11-01] MEDS: diphenhydrAMINE HCL 50 MG CAP PO PRN (20:23)
[2017-11-01] MEDS: DIVALPROEX SODIUM E.R. 500 MG TAB PO SCH (20:23)
[2017-11-02] MEDS: MAGNESIUM HYDROXIDE SUSP 30 ML CUP PO PRN ×2 (02:13→22:34)
[2017-11-02 05:56] VITALS: BP 163/67; PULSE 99; RESP 17; TEMP 98
[2017-11-02] MEDS: DIVALPROEX SODIUM E.R. 500 MG TAB PO SCH ×2 (09:05→20:19)
--- NOTE | 2017-11-02 12:03 | EKG ---
Date Performed: 11/01/2017 Time Performed: 11:42:32 PTAGE: 22 years EKG: Sinus rhythm Normal ECG PREVIOUS TRACING : 10/31/2017 13.45 Compared to previous tracing, T-wave changes have improved. DOCTOR: Jae Daniels Interpretating Date/Time 11/02/2017 12:01:13
--- NOTE | 2017-11-02 12:03 | EKG ---
Date Performed: 11/02/2017 Time Performed: 10:55:04 PTAGE: 22 years EKG: BORDERLINE LEFT AXIS DEVIATION OTHERWISE WITHIN NORMAL LIMITS Since previous tracing, no si gnificant change noted NORMAL ECG PREVIOUS TRACING : 11/01/2017 05.37.05 DOCTOR: Jae Daniels Interpretating Date/Time 11/02/2017 12:01:58
--- NOTE | 2017-11-02 14:49 | HHI.PYPN ---
Subjective Chief Complaint: Bipolar Mixed Remarks Patient was seen and case discussed with nursing. See note from yesterday why Thorazine was stopped. He is now on Abilify and Depakote and tolerating it well. He is pleasant and cooperative during exam. Nursing has not noticed any mood lability. He has not had any altercations patients or staff. EKG was repeated this morning and QTC went down to 395. Says he spoke with his mom and the advocate to take him back. Mental Status Examination Appearance: Appropriate Consciousness: Alert, Vigilant Orientation: x4 Motor Activity: Normal gait, Other (No motor abnormalities noted.) Speech: Other (Yelling) Language: Adequate Fund of Knowledge: Adequate Attention and Concentration: Easily Distracted Memory: Unremarkable Mood: Appropriate, Irritable Affect: Appropriate, Other (dysphoric) Thought Process & Associations: Intact Thought Content: Appropriate Hallucination Type: Other (internally stimulated) Delusion Type: Paranoid Suicidal Ideation: No Suicidal Plan: No Suicidal Intention: No Homicidal Ideation: No (issuing threats to staff) Insight: Poor Judgment: Poor Results Vitals/IOs Vital Signs Date Time Temp Pulse Resp B/P (MAP) Pulse Ox O2 Delivery O2 Flow Rate FiO2 11/02/17 05:56 98.0 99 17 163/67 (99) 11/01/17 19:08 99 Assessment & Plan Problem List: (1) Bipolar disorder, current episode mixed, severe, with psychotic features ICD Codes: F31.64 - Bipolar disorder, current episode mixed, severe, with psychotic features Status: Acute (2) Cannabis abuse ICD Codes: F12.10 - Cannabis abuse, uncomplicated Assessment & Plan Patient is improving. Patient thinks that he got an injection a week ago of Abilify Aristada, this should be verified and need for by mouth medication be reconsidered Justification for Cont. Inpt. Patient would decompensate in a less restrictive setting Request HC Surrog/Guard Advoc?: Yes Mega Padilla DO Nov 02, 2017 14:49
[2017-11-02] MEDS: NICOTINE 21 MG/24 HR PATCH T-DERMAL PRN (15:30)
[2017-11-02] MEDS: ACETAMINOPHEN 325 MG TAB PO PRN (15:38)
[2017-11-02 17:30] VITALS: BP 136/71; PULSE 85; RESP 17; TEMP 99.1; O2SAT 97
[2017-11-02] MEDS: IBUPROFEN 600 MG TAB PO PRN (20:19)
[2017-11-03] MEDS: ACETAMINOPHEN 325 MG TAB PO PRN ×2 (05:24→23:49)
[2017-11-03 05:43] VITALS: BP 136/63; PULSE 96; RESP 18; TEMP 97.9; O2SAT 98
--- NOTE | 2017-11-03 08:38 | HHI.PYPN ---
Subjective Chief Complaint: Bipolar Mixed Remarks Patient seen and examined with nurse. Chart reviewed. Case discussed with nursing staff. Patient reportedly did well overnight with no behavioral disturbance. On my examination today, the patient reports that he feels well. He feels "super calm." He apologizes for his behavioral disturbance before the weekend noting "I just want to say thank you for enduring my disrespect." He denies SI/HI/AVH. Denies side effects from medications. I do note antipsychotic was stopped because of concern for QTc prolongation. I have reviewed the EKGs, and at no point was QTc absolutely prolonged; rather, QTc was somewhat longer than prior to antipsychotic use. Nurse has clarified with SMA and patient did receive Abilify Aristada on 10/19. No physical complaints. Patient is hopeful for discharge soon. Placed call to patient's mother. She feels that the patient is much improved but requests that we observe him another day "to be sure." I explain that I do not think that observing another day would provide much in the was of reassurance in this regard, but she persists in making this request. She will accept him home tomorrow if he passes an uneventful night. Review of Systems Except as stated in HPI: all other systems reviewed are Neg Mental Status Examination Appearance: Appropriate Consciousness: Alert Orientation: x4 Motor Activity: Other (no abnormal motor movements noted) Speech: Unremarkable Language: Adequate Fund of Knowledge: Adequate Attention and Concentration: Adequate Memory: Unremarkable Mood: Appropriate Affect: Appropriate Thought Process & Associations: Intact Thought Content: Appropriate Hallucination Type: None Delusion Type: None Suicidal Ideation: No Suicidal Plan: No Suicidal Intention: No Homicidal Ideation: No Homicidal Plan: No Homicidal Intention: No Insight: Fair Judgment: Adequate (fair) Results Labs Item Value Date Time Potassium Level 4.2 MEQ/L 11/03/17 1030 Sodium Level 138 MEQ/L 11/03/17 1030 Chloride Level 105 MEQ/L 11/03/17 1030 Carbon Dioxide Level 29.1 MEQ/L 11/03/17 1030 Blood Urea Nitrogen 4 MG/DL L 11/03/17 1030 Creatinine 1.03 MG/DL 11/03/17 1030 Estimat Glomerular Filtration Rate 90 ML/MIN 11/03/17 1030 Random Glucose 86 MG/DL 11/03/17 1030 Total Creatine Kinase 430 U/L H 11/03/17 1030 Labs reviewed. BMP unremarkable. CK downtrending. Vitals/IOs Vital Signs Date Time Temp Pulse Resp B/P (MAP) Pulse Ox O2 Delivery O2 Flow Rate FiO2 11/03/17 05:43 97.9 96 18 136/63 (87) 98 Assessment & Plan Problem List: (1) Bipolar disorder, current episode mixed, severe, with psychotic features ICD Codes: F31.64 - Bipolar disorder, current episode mixed, severe, with psychotic features Status: Acute (2) Cannabis abuse ICD Codes: F12.10 - Cannabis abuse, uncomplicated Assessment & Plan Continue Depakote as ordered. Plan to check a level later this week, likely on an outpatient basis. Patient has Thomas LANDRY on board. Transfer patient to lower acuity unit once a bed is available. Patient may sign voluntary. Continue other care as ordered. Justification for Cont. Inpt. Monitor overnight. Discharge Planning Anticipate discharge tomorrow, Friday. Case discussed with counselor. Request HC Surrog/Guard Advoc?: Yes Raghavendra Jacobs MD Nov 03, 2017 08:37
[2017-11-03] MEDS: DIVALPROEX SODIUM E.R. 500 MG TAB PO SCH ×2 (09:09→21:14)
[2017-11-03 11:34] LABS: BICARBONATE 29.1 MEQ/L (21.0-32.0); CALCIUM 9.2 MG/DL (8.5-10.1); CREATININE 1.03 MG/DL (0.60-1.30)
[2017-11-03 18:00] VITALS: BP 124/67; PULSE 89; RESP 18; TEMP 98.4; O2SAT 98
[2017-11-03] MEDS: MAGNESIUM HYDROXIDE SUSP 30 ML CUP PO PRN (21:35)
[2017-11-04] MEDS: IBUPROFEN 600 MG TAB PO PRN (04:22)
[2017-11-04 06:15] VITALS: BP 104/61; PULSE 82; RESP 18; TEMP 98.2; O2SAT 100
[2017-11-04] MEDS: DIVALPROEX SODIUM E.R. 500 MG TAB PO SCH (08:20)
[2017-11-04] MEDS ORDERED: DEPA500T3 PO (12:09)
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
--- NOTE | 2017-11-04 14:48 | PD.TTN ---
Patient Problems 1. Discharge planning 2. Medication compliance 3. Knowledge deficit 4. Lack of coping skills Progress Toward Goals Provider Present: Dr. Joselyn Jacobs Provider Input: Pt will be discharged home today and given necessary scripts. Psychiatric Counselors Present: ASHLEY Gutierrez Psych Therapist Input: Pt will be discharged home today and linked with necessary follow up services. Group Spec/RT/OT/GEORGE Present: IKNGA Aponte Group Spec/RT/OT/GEORGE Input: Pt mood is calmer. Pt attends the group activities with good participation. Discharge Plan [facility] Pt will return mother's home and will be linked with outpatient psychiatric services through [facility]. Documentation Scribe: ASHLEY Gutierrez Jonathan LMHC Nov 04, 2017 14:48
== END 2017-11-04 13:45 | disposition home or self-care (01) | DRG 885 ==
LOC: NEPD 23:48 → NEDA 10-29 05:47 → H270 10-29 06:18 → H260 11-03 15:00
PROVIDERS: ADMIT Psychiatry & Neurology Psychiatry; ATTEND Psychiatry & Neurology Psychiatry
DX: F31.64 Bipolar disorder, current episode mixed, severe, with psychotic features (principal); Z78.1 Physical restraint status; F17.210 Nicotine dependence, cigarettes, uncomplicated; F12.10 Cannabis abuse, uncomplicated; S62.336A Displaced fracture of neck of fifth metacarpal bone, right hand, initial encounter for closed fracture
CPT/HCPCS: 73120; 80048; 80061; 80076; 80164; 80307; 81001; 82550; 82552; 83036; 84443; 85025; 93005; 96372; J1200; J1630; J2060; J3230; J3486; Q0163